=== PATIENT | female | born 1935 | race Caucasian/White ===

== ENCOUNTER 2019-04-21 12:55 | Outpatient (CLI) | payer MEDICARE, SELFPAY ==
--- NOTE | ~2019-04-21 | US_ITS ---
EXAMINATION: US carotid duplex BI DATE: 04/21/2019 13:42 INDICATION: Memory loss. Peripheral vascular disease. TECHNIQUE: Grayscale, color Doppler, and pulsed Doppler images of the cervical carotid arteries were obtained. The degree of vessel stenosis is placed in one of the following categories: normal, <50%, 5 0-69%, >=70% but less than near-occlusion, near-occlusion, or total occlusion. Note that percent sten osis relative to normal distal artery lumen diameter is indirectly measured from velocity measurement s as described by Rocael, et al. Radiology 2003; 229:340-346. Notes: Normal: Peak systolic velocity <125 centimeters/sec and no plaque <50%. Peak systolic velocity <125 ( EDV <40; ICA/CCA PSV ratio <2.0; used these factors only a tandem lesions or low cardiac output or co ntralateral disease) 50-69 %: PSV 125-230 (EDV 40-100; ratio 2-4) >= 70% but less than near occlusion: PSV greater than 230 (EDV > 100; ratio> 4.0) Near Occlusion: PSV that is variable; markedly narrowed lumen Occlusion: Absent flow on color/spectral Doppler and no lumen on rogers scale. COMPARISON: None. FINDINGS: RIGHT: The right common carotid artery (CCA) peak systolic velocity (PSV) is 81 cm/s. The right internal car otid artery (ICA) PSV is 92 cm/s. The right ICA end-diastolic velocity (EDV) is 18 cm/s. The right IC A/CCA PSV ratio is 1.1. The external carotid artery (ECA) PSV is 81 cm/s. There is antegrade flow in the right vertebral artery. LEFT: The left CCA PSV is 79 cm/s. The left ICA PSV is 72 cm/s. The left ICA EDV is 19 cm/s. The left ICA/C CA PSV ratio is 0.9. The ECA PSV is 91 cm/s. There is antegrade flow in the left vertebral artery. IMPRESSION: 1. Less than 50% stenosis in the right internal carotid artery by sonographic criteria. 2. Less than 50% stenosis in the left internal carotid artery by sonographic criteria. Reviewed, dictated and finalized at location A. IMPRESSION: 1. Less than 50% stenosis in the right internal carotid artery by sonographic c melissa. 2. Less than 50% stenosis in the left internal carotid artery by sonographic frank wagner.
== END 2019-04-21 12:56 | disposition home or self-care (01) ==
LOC: ANHIMG 13:07
PROVIDERS: PCP Nurse Practitioner Family; Visit Provider Nurse Practitioner Family
DX: R09.89 Other specified symptoms and signs involving the circulatory and respiratory systems (principal); I65.23 Occlusion and stenosis of bilateral carotid arteries
CPT/HCPCS: 93880

== ENCOUNTER 2019-04-25 11:23 | Outpatient (CLI) | payer MEDICARE, SELFPAY ==
[2019-04-25 13:14] LABS: Blood Urea Nitrogen 17 mg/dL (7-17); Calcium 10.5 mg/dL (8.4-10.2); Carbon Dioxide 25 mmol/L (22-30); Chloride 99 mmol/L (98-107); Estimated Glomerular Filt Rate > 60; Glucose 233 mg/dL (65-105); Potassium 4.3 mmol/L (3.4-5.0); Sodium 131 mmol/L (137-145)
== END 2019-04-25 11:24 | disposition home or self-care (01) ==
LOC: ANHWCLAB 11:29
PROVIDERS: PCP Nurse Practitioner Family; Visit Provider Nurse Practitioner Family
DX: E87.5 Hyperkalemia (principal)
CPT/HCPCS: 36415; 80048

== ENCOUNTER 2019-10-07 11:09 | Outpatient (CLI) | payer MEDICARE, SELFPAY ==
[2019-10-07 11:59] LABS: Alanine Aminotransferase 18 U/L (4-35); Albumin Level 4.1 g/dL (3.5-5.1); Alkaline Phosphatase 41 U/L (38-126); Anion Gap 7 mmol/L (8-16); Aspartate Amino Transferase 26 U/L (14-36); Bilirubin,Total 0.4 mg/dL (0.2-1.3); Blood Urea Nitrogen 12 mg/dL (7-17); Calcium 9.9 mg/dL (8.4-10.2); Carbon Dioxide 28 mmol/L (22-30); Chloride 95 mmol/L (98-107); Estimated Glomerular Filt Rate > 60; Glucose 205 mg/dL (65-105); Hemoglobin A1C 8.2 % (<5.7); Potassium 4.1 mmol/L (3.4-5.0); Sodium 130 mmol/L (137-145)
[2019-10-07 12:09] LABS: LDL Cholesterol Direct 98 mg/dL
[2019-10-07 12:25] LABS: Cholesterol 257 mg/dL (0-200); Triglycerides 141 mg/dL (<150)
[2019-10-07 12:35] LABS: Vitamin D 25 Hydroxy 34.8 ng/mL
[2019-10-07 13:06] LABS: HDL Direct 123 mg/dL
== END 2019-10-07 11:10 | disposition home or self-care (01) ==
LOC: ANHLAB 11:12
PROVIDERS: PCP Nurse Practitioner Family; Visit Provider Nurse Practitioner Family
DX: E55.9 Vitamin D deficiency, unspecified (principal); I10 Essential (primary) hypertension; E11.9 Type 2 diabetes mellitus without complications
CPT/HCPCS: 36415; 80053; 80061; 82306; 83036

== ENCOUNTER → 2020-05-04 08:02 | Outpatient (CLI) | payer MEDICARE, SELFPAY ==
--- NOTE | ~2020-05-04 | US_ITS ---
US soft tissue abdomen DATE: 05/04/2020 08:38 INDICATION: Left upper quadrant abdominal swelling, mass. History of abdominal surgeries. TECHNIQUE: Real-time imaging of the anterior abdominal wall COMPARISON: 11/12/2018 CT abdomen pelvis FINDINGS: Bowel containing left anterior abdominal wall hernia is confirmed sonographically, also chance dent on 11/12/2018 CT abdomen pelvis examination. IMPRESSION: Left ventral abdominal wall hernia containing bowel Reviewed, dictated and finalized at [facility]. Reviewed, dictated and finalized at location B.
== END ==
PROVIDERS: PCP Nurse Practitioner Family; Visit Provider Nurse Practitioner Family
DX: R19.02 Left upper quadrant abdominal swelling, mass and lump (principal)
CPT/HCPCS: 76705

== ENCOUNTER 2023-02-10 07:09 | Emergency (ER) | payer MEDICARE, SELFPAY ==
--- NOTE | ~2023-02-10 | CT_ITS ---
EXAMINATION: CT brain wo con DATE: 02/10/2023 07:48 INDICATION: Head injury. TECHNIQUE: Computed tomography (CT) of the head was performed without intravenous contrast. The mA wa s adjusted according to patient size. Iterative reconstruction technique was employed. The dose-lengt h product was 529.67 mGy-cm. COMPARISON: Head CT 11/12/2018 FINDINGS: There are scattered areas of low attenuation in the cerebral white matter. There is no intr acranial hemorrhage, acute infarction, or abnormal intracranial mass lesion. The ventricles are irvin l in size. There are likely changes of ocular lens replacement surgeries. The paranasal sinuses are c lear. The mastoid air cells are normal. IMPRESSION: 1. Worsened extensive nonspecific cerebral white matter disease, which likely represents chronic smal l vessel ischemic disease. Reviewed, dictated and finalized at location A. OR NATUROPATHIC IMPRESSION: 1. Worsened extensive nonspecific cerebral white matter disease, which likely r epresents chronic small vessel ischemic disease.
--- NOTE | ~2023-02-10 | XR_ITS ---
EXAMINATION: XR hip BI 2V w AP pelvis DATE: 02/10/2023 07:51 INDICATION: Bilateral hip pain. TECHNIQUE: An anteroposterior view of the pelvis and 2 views of each hip were obtained. COMPARISON: None. FINDINGS: There is lumbar levocurvature and severe spondylosis. No acute fracture. There is mild oste oarthritis of the hips. There is plate and screw fixation of right femoral diaphysis. There are surgi lizette clips overlying the abdomen and pelvis. IMPRESSION: 1. Mild osteoarthritis of the hips. Reviewed, dictated and finalized at location A. 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
--- NOTE | ~2023-02-10 | CT_ITS ---
EXAMINATION: CT cervical spine wo con DATE: 02/10/2023 07:48 INDICATION: Neck injury. TECHNIQUE: Computed tomography (CT) of the cervical spine was performed without intravenous contrast. Automated exposure control and iterative reconstruction technique were employed. The dose-length pro duct was 125.05 mGy-cm. COMPARISON: None FINDINGS: There is 5 degrees levocurvature of cervicothoracic spine. There is 2 mm anterolisthesis of C4 on C5, C6 on C7, and C7 on T1. Vertebral body heights are normal. There is mildly decreased disc height at C3-C4 and C4-C5 and severely decreased disc height at C5-C6 and C6-C7. The following disc l evels are specifically discussed: C2-C3: There is mild bilateral uncovertebral joint osteoarthritis. There is severe right and moderate left facet joint osteoarthritis. There is mild right neural foraminal stenosis. There is no central canal stenosis. C3-C4: There is ankylosis of right uncovertebral joint with mild hypertrophy. There is severe left fa cet joint osteoarthritis. There is ankylosis of right facet joint with moderate hypertrophy. There is mild right neural foraminal stenosis. There is no central canal stenosis. C4-C5: There is severe right and mild left uncovertebral joint osteoarthritis. There is severe bilate ral facet joint osteoarthritis. There is mild bilateral neural foraminal stenosis. There is mild cent ral canal stenosis. C5-C6: There is severe bilateral uncovertebral joint osteoarthritis. There is severe bilateral facet joint osteoarthritis. There is mild bilateral neural foraminal stenosis. There is mild central canal stenosis. C6-C7: There is moderate right and severe left uncovertebral joint osteoarthritis. There is severe bi lateral facet joint osteoarthritis. There is mild right and moderate left neural foraminal stenosis. There is mild central canal stenosis. C7-T1: There is no uncovertebral joint osteoarthritis. There is ankylosis of the facet joints with mi ld hypertrophy. There is mild bilateral neural foraminal stenosis. There is no central canal stenosis . IMPRESSION: 1. No fracture. 2. Severe cervical spondylosis. Reviewed, dictated and finalized at location A. 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
[2023-02-10 07:10] VITALS: BP 139/75; PULSE 78; RESP 16; TEMP 36.6; O2SAT 95
--- NOTE | 2023-02-10 07:34 | ED.GENADULT ---
HPI - General Adult General Chief complaint: Fall Stated complaint: fall History of Present Illness HPI narrative: 87-year-old female presenting to the emergency department for evaluation for a ground level fall this morning. Patient slid from a chair and patient is unsure if she struck her head or had loss of consciousness. Patient does have bilateral hip pain that she states is improving since he has been resting in the bed. Patient states the pain is worse on the right than the left. Patient reports she was able to ambulate after the fall. Patient denies any other pain or injury. Related Data Allergies Allergy/AdvReac Type Severity Reaction Status Date / Time adhesive AdvReac Mild BANDAIDS Verified 05/11/20 08:33 CAUSE RASH codeine AdvReac Mild N/V Verified 05/11/20 08:33 latex AdvReac Mild Itching Verified 05/11/20 08:33 Review of Systems Review of Systems: All systems reviewed & are unremarkable except as noted in HPI and below PMFSH Past Medical History Medical History (Updated 02/10/23 @ 08:49 by Enrique Rose MD) Abdominal hernia Anxiety Diabetes H/O cancer of uterus History of acute cystitis (~11/2018) Follows with Dr Jefferson Hypertension Hypertension Insomnia Memory loss Myocardial infarct, old tropinins were elevated; she denies [place] Type 2 diabetes mellitus without complications Vitamin D deficiency Family History Family History (Updated 03/26/18 @ 09:09 by DOCTOR UNKNOWN) Mother Cerebrovascular accident Family history of heart disease in male family member before age 55 Father Patient's father is Family history of malignant melanoma Other Family history of condition Family history of dementia Social History Social History Smoking status: Never smoker Alcohol intake: current Exam Narrative: APPEARANCE: Well appearing, no pain, no distress, well-nourished. HEAD: normocephalic, atraumatic. EYES: PERRLA/EOMI, conjunctivae clear. NOSE: Normal no drainage NECK: Supple. No adenopathy, no masses. RESPIRATORY: Airway patent, respirations nonlabored. Clear to auscultation bilaterally, no rales, rhonchi, wheezing. CARDIOVASCULAR: Regular rate and rhythm without murmurs rubs or gallops. ABDOMINAL: Soft, nontender, nondistended, normal bowel sounds MUSCULOSKELETAL: Moves all extremities. Strength/ROM intact, No edema, No calf tenderness. NEURO: Alert. Cranial nerves II through XII intact. SKIN: Warm, dry. Normal Color Course Course Emergency Course: ID 7-year-old female presenting to the emergency department for evaluation after having a ground level fall. Patient had negative head cervical spine and hip x-rays. Patient was able to ambulate with a walker at her baseline. Patient states she feels sore but denies any other complaints. Patient was comfortable with plan for discharge back to the care facility. Vital Signs Vital signs: Vital Signs Temperature 97.8 F 02/10/23 07:10 Pulse Rate 78 02/10/23 07:10 Respiratory Rate 16 02/10/23 07:10 Blood Pressure 139/75 02/10/23 07:10 Pulse Oximetry 95 02/10/23 07:10 Oxygen Delivery Room Air 02/10/23 07:10 Temperature 97.8 F 02/10/23 07:10 Pulse Rate 74 02/10/23 09:15 Respiratory Rate 16 02/10/23 09:15 Blood Pressure 141/60 H 02/10/23 09:15 Pulse Oximetry 96 02/10/23 09:15 Oxygen Delivery Room Air 02/10/23 07:10 Medical Decision Making Differential Diagnosis Differential Diagnosis: Bone fracture, cervical spine fracture, intracranial abnormality Vital Signs Vital Signs: Vital Signs Temperature 97.8 F 02/10/23 07:10 Pulse Rate 78 02/10/23 07:10 Respiratory Rate 16 02/10/23 07:10 Blood Pressure 139/75 02/10/23 07:10 Pulse Oximetry 95 02/10/23 07:10 Oxygen Delivery Room Air 02/10/23 07:10 Temperature 97.8 F 02/10/23 07:10 Pulse Rate 74 02/10/23 09:15 Respiratory Rate 16 02/10/23 09:15 Blood Pressure 141/60 H
[2023-02-10 08:30] VITALS: BP 161/73; PULSE 84; RESP 16; O2SAT 98
[2023-02-10 09:15] VITALS: BP 141/60; PULSE 74; RESP 16; O2SAT 96
--- NOTE | 2023-02-10 09:30 | PC.NURSE ---
ATTEMPTED TO CALL REPORT FOR PT PRIOR TO HER BEING TRANSPORTED BACK TO FACILITY. NO ANSWER. MESSAGE LEFT FOR THEM TO CALL BACK IF THEY NEED INFORMATION.
== END 2023-02-10 09:30 ==
PROVIDERS: Emergency Provider Emergency Medicine; PCP Nurse Practitioner Family
DX: S09.90XA Unspecified injury of head, initial encounter (principal); M25.551 Pain in right hip; M25.552 Pain in left hip; W07.XXXA Fall from chair, initial encounter; I10 Essential (primary) hypertension; E11.9 Type 2 diabetes mellitus without complications; E55.9 Vitamin D deficiency, unspecified; F41.9 Anxiety disorder, unspecified; I25.2 Old myocardial infarction; Z85.42 Personal history of malignant neoplasm of other parts of uterus; Z79.84 Long term (current) use of oral hypoglycemic drugs
CPT/HCPCS: 70450; 72125; 73521; 99284

== ENCOUNTER 2023-02-20 15:36 | Inpatient (IN) | payer MEDICARE, SELFPAY ==
[2023-02-20] VITALS (15 sets, daily range): BP systolic 108–188; BP diastolic 65–87; PULSE 72–87; RESP 16–20; TEMP 36.1–37; O2SAT 96–100; BMI 25.0
--- NOTE | ~2023-02-20 | XR_ITS ---
EXAMINATION: XR chest 1V portable DATE: 02/20/2023 16:12 INDICATION: Dizziness. TECHNIQUE: A single frontal view of the chest was obtained. COMPARISON: Chest view 11/12/2018 FINDINGS: There is no pneumonia, pleural effusion, or pneumothorax. The heart size is normal. There a re old healed right rib fractures. IMPRESSION: 1. No acute cardiopulmonary disease. Reviewed, dictated and finalized at location A. TOR OPERATOR HELPER
--- NOTE | 2023-02-20 15:44 | ECG_ITS ---
Measurements Intervals [place] Rate: 76 P: 42 OR: 205 QRS: -12 QRSD: 92 T: 28 QT: 369 QTc: 415 Interpretive Statements SINUS RHYTHM POSSIBLE LEFT ATRIAL ENLARGEMENT DELAYED PRECORDIAL R/S TRANSITION LEFT VENTRICULAR HYPERTROPHY WITH ST-T CHANGE INFERIOR INFARCT, AGE INDETERMINATE ABNORMAL ECG COMPARED TO ECG 11/12/2018 10:23:25 SINUS RHYTHM NOW PRESENT Electronically Signed On 02-20-2023 16:11:12 CD [employer] MAKE UP HELPER by Delta Garcia D.O.
[2023-02-20 16:10] LABS: Basophils Absolute Auto 0.1 K/mm3 (0.0-0.1); Basophils Percent Auto 0.6 % (0.2-1.2); Eosinophils Percent Auto 0.3 % (0-4.4); Hematocrit 35.7 % (37.0-47.0); Hemoglobin 11.7 g/dL (12.0-15.0); Immature Granulocyte Absolute 0.03 K/mm3 (0.00-0.031); Immature Granulocyte Percent A 0.2 % (0-0.5); Immature Platelet Fraction Pct 4.2 % (0.9-11.2); Lymphocytes Absolute Auto 6.69 K/mm3 (0.9-3.2); Lymphocytes Percent Auto 49.8 % (18.3-44.2); Mean Corpuscular HGB Conc 32.8 g/dl (32-36); Mean Corpuscular Hemoglobin 31.6 pg (26-34); Mean Corpuscular Volume 96.5 fl (80-100); Mean Platelet Volume 10.1 fl (7.4-10.4); Monocytes Absolute Auto 0.5 K/mm3 (0.1-0.6); Monocytes Percent Auto 3.9 % (2.6-8.5); Neutrophils Absolute Auto 6.1 K/mm3 (1.3-6.7); Neutrophils Percent Auto 45.2 % (45.5-73.1); Platelet Count Result 277 k/mm3 (150-375); Red Cell Distribution Width 12.4 % (11.5-14.5); White Blood Count 13.4 K/mm3 (4.5-10.0)
[2023-02-20 16:17] LABS: Alanine Aminotransferase 17 U/L (6-35); Alkaline Phosphatase 43 U/L (38-126); Anion Gap 8 mmol/L (8-16); Aspartate Amino Transferase 31 U/L (14-36); Bilirubin,Total 0.4 mg/dL (0.2-1.3); Blood Urea Nitrogen 15 mg/dL (7-17); Calcium 10.5 mg/dL (8.4-10.2); Carbon Dioxide 28 mmol/L (22-30); Chloride 95 mmol/L (98-107); Estimated CRCL calculation 40 ml/min; Estimated Glomerular Filt Rate > 60; Glucose 185 mg/dL (65-110); Lipase 78 U/L (23-300); Potassium 3.6 mmol/L (3.4-5.0); Sodium 131 mmol/L (137-145)
[2023-02-20 16:20] LABS: Prothrombin Time 13.4 Seconds (11.1-14.7)
[2023-02-20 16:21] LABS: Partial Thromboplastin Time 23.5 SECONDS (22.3-36.8)
[2023-02-20 16:29] LABS: Platelet Estimate Adequate (Adequate); Smudge Cells FEW
[2023-02-20 16:30] LABS: Platelet Clumps Present; Schistocytes None Seen (NORMAL)
[2023-02-20 16:33] LABS: Troponin I 0.084 ng/mL (0.000-0.034)
--- NOTE | 2023-02-20 16:48 | PC.NURSE ---
pt pulled iv line out. got dressed and walked to nurses station stating she wants to leave. pts son contacted ed for update and made aware of pts plan of care. continue waiting edp evaluation.
--- NOTE | 2023-02-20 17:44 | ED.DIZZY ---
HPI - Dizziness General Chief Complaint: Dizziness <Donna Wasserman PA-C - Last Filed: 02/20/23 22:24> Stated Complaint: dizzy, glf <Donna Wasserman PA-C - Last Filed: 02/20/23 22:24> Time Seen by Provider: 02/20/23 17:14 <Donna Wasserman PA-C - Last Filed: 02/20/23 22:24> Source: patient, family and EMS <JANELLE Sylvester Last Filed: 02/20/23 22:24> Mode of arrival: EMS <JANELLE Sylvester Last Filed: 02/20/23 22:24> Limitations: dementia <JANELLE Sylvester Last Filed: 02/20/23 22:24> History of Present Illness HPI Narrative: This is a 87 year old female that presents to the ER after a ground level fall from her nursing facility. Patient reportedly was found on the ground by staff. She reported to the paramedics that she was dizzy, but now is reporting no concerns and would like to go home. She is unable to give any history due to her dementia. Son is present at bedside. <Donna Wasserman PA-C - Last Filed: 02/20/23 22:24> Related Data Allergies/Adverse Reactions: Allergies Allergy/AdvReac Type Severity Reaction Status Date / Time adhesive AdvReac Mild BANDAIDS Verified 02/20/23 22:25 CAUSE RASH codeine AdvReac Mild N/V Verified 02/20/23 22:25 latex AdvReac Mild Itching Verified 02/20/23 22:25 <JANELLE Sylvester Last Filed: 02/20/23 22:24> Review of Systems Review of Systems: ROS unobtainable: Yes unobtainable due to medical condition <JANELLE Sylvester Last Filed: 02/20/23 22:24> PMF Past Medical History Medical History: Medical History Abdominal hernia Anxiety Diabetes H/O cancer of uterus History of acute cystitis (~11/2018) Follows with Dr Jefferson Hypertension Hypertension Insomnia Memory loss Myocardial infarct, old tropinins were elevated; she denies [place] Type 2 diabetes mellitus without complications Vitamin D deficiency <Donna Wasserman PA-C - Last Filed: 02/20/23 22:24> Family History Family History: Family History Mother Cerebrovascular accident Family history of heart disease in male family member before age 55 Father Patient's father is Family history of malignant melanoma Other Family history of condition Family history of dementia <Donna Wasserman PA-C - Last Filed: 02/20/23 22:24> Social History Social History: Social History Smoking status: Never smoker Alcohol intake: current Drinks per week: 3 Substance use: never Substance use type: does not use Do You Feel Safe in your Home?: Yes Lack of Transportation: No Lack of Food: Never True Current Housing: I Have Housing Concerned About Future Housing: No Difficulty Paying Gas/Electric Bills: No Difficulty Paying for Meds: No Currently Unemployed: No Education: Associate Degree Difficulty w/ Childcare or Family Care: No Spiritual care concerns: No <Donna Wasserman PA-C - Last Filed: 02/20/23 22:24> Exam Narrative: GENERAL: Elderly, well-nourished, and in no acute distress. HEAD: Normocephalic, atraumatic. EYES: PERRLA and EOMI. ENT: Nares clear, no rhinorrhea or epistaxis. Mucous membranes moist. Oropharynx without tonsillar hypertrophy exudate or other lesions. Bilateral TMs pearly rogers non-bulging NECK: Supple. No adenopathy or masses. No midline spinal tenderness CHEST: Clear to auscultation. No respiratory distress. No wheezes rales or rhonchi HEART: Regular rate and rhythm. No murmur heard. Normal peripheral pulses. ABDOMEN: Soft, nontender, nondistended, normal active bowel sounds. EXTREMITIES: Normal range of motion. No edema or obvious deformity. Moving all extremities. Normal peripheral pulses SKIN: Warm, dry, no rash. NEURO: No focal deficits. Alert and oriented x2. CN II-XII grossly intact PSYCH: Normal mo
[2023-02-20 18:12] LABS: Lactic Acid Reflex 2.6 mmol/L (0.7-2.0)
--- NOTE | 2023-02-20 19:15 | PC.NURSE ---
Assumed care of pt from BRIAN Cruz at this time.
[2023-02-20 19:29] LABS: Color Urine Yellow (Yellow)
[2023-02-20 19:30] LABS: Appearance Urine Cloudy (Clear)
[2023-02-20 19:31] LABS: Add Urine Microscopic? YES
[2023-02-20 19:32] LABS: Blood Urine Trace-Intact (Negative); Glucose Urine UA Negative (Negative); Ketones Urine Trace mg/dL (Negative); Nitrate Urine Positive (Negative); Protein Urine Negative (Negative); pH Urine 5.5 (5.0-9.0)
[2023-02-20 19:33] LABS: Bilirubin Urine Negative (Negative); Leukocyte Esterase Ur Negative LEU/UL (Negative); RBC Urine 0-2 /hpf (0-2); Urobilinogen Urine 0.2 mg/dL (<2.0)
[2023-02-20 19:34] LABS: Bacteria Urine 4+ /hpf; Squamous Epithelial Cell Urine Few /hpf (Few)
[2023-02-20] MEDS: SODIUM CHLORIDE 0.9% IV 500 ML 999 ML IV CONT (20:30)
[2023-02-20 20:59] LABS: Reflex Lactic Acid Yes or No Add Lactic
[2023-02-20 21:23] LABS: Troponin I 0.036 ng/mL (0.000-0.034)
[2023-02-20] MEDS: SODIUM CHLORIDE 0.9% IV 1,000 ML 500 ML IV CONT (21:31)
[2023-02-20 23:30] LABS: Lactic Acid 1.2 mmol/L (0.7-2.0)
[2023-02-20 23:58] LABS: Troponin I 0.191 ng/mL (0.000-0.034)
[2023-02-21 05:03] VITALS: BP 163/53; PULSE 74; RESP 20; TEMP 36.4; O2SAT 99
--- NOTE | 2023-02-21 12:26 | PM.IMHP ---
H&P: HPI History of Present Illness Date/Time: 02/21/23 12:26 Chief Complaint: Confusion and fall Narrative: 87 year old female that presents to the ER after a ground level fall from her nursing facility.?Pt has history of HTN and DM Pt has history of dementia. [place] [id number], UA is positive, UC awaiting BC is awaiting Continue to hydrate and treat for UTI Review of Systems Review of Systems: Confusion history of dizziness and falls All other systems are negative apart the ones listed above PMFSH Past Medical History Medical History Abdominal hernia Anxiety Diabetes H/O cancer of uterus History of acute cystitis (~11/2018) Follows with Dr Jefferson Hypertension Hypertension Insomnia Memory loss Myocardial infarct, old tropinins were elevated; she denies [place] Type 2 diabetes mellitus without complications Vitamin D deficiency Family History Family History Mother Cerebrovascular accident Family history of heart disease in male family member before age 55 Father Patient's father is Family history of malignant melanoma Other Family history of condition Family history of dementia Social History Social History Smoking status: Never smoker Alcohol intake: current Drinks per week: 3 Substance use: never Substance use type: does not use Do You Feel Safe in your Home?: Yes Lack of Transportation: No Lack of Food: Never True Current Housing: I Have Housing Concerned About Future Housing: No Difficulty Paying Gas/Electric Bills: No Difficulty Paying for Meds: No Currently Unemployed: No Education: Associate Degree Difficulty w/ Childcare or Family Care: No Spiritual care concerns: No Meds Home Medications and Allergies Home Medications Medication Instructions Recorded Confirmed Type metformin 1,000 mg tablet 1,000 mg PO BID #180 tabs 05/23/21 02/20/23 Rx tamsulosin 0.4 mg capsule 0.4 mg PO DAILY #90 caps 05/24/21 02/20/23 Rx amlodipine 10 mg tablet 10 mg PO DAILY #30 ea 10/07/21 02/20/23 Rx acetaminophen 500 mg tablet 500 mg PO .q12 PRN pain (scale 10/20/21 02/20/23 Rx (Tylenol Extra Strength) score 4-6) #60 tabs calcium carb,cit ER 600 mg-vit D3 1 tablet PO DAILY #1 tablet 12/13/21 02/20/23 Rx 12.5 mcg (500 unit) tablet,ext.rel docusate sodium 100 mg capsule 100 mg PO DAILY #1 cap 12/13/21 02/20/23 Rx (Colace) melatonin 3 mg capsule 3 mg PO QHS #1 cap 12/13/21 02/20/23 Rx polyethylene glycol 3350 17 17 g PO DAILY #119 grams 12/13/21 02/20/23 Rx gram/dose oral powder (Miralax) Allergies Allergy/AdvReac Type Severity Reaction Status Date / Time adhesive AdvReac Mild BANDAIDS Verified 02/20/23 22:25 CAUSE RASH codeine AdvReac Mild N/V Verified 02/20/23 22:25 latex AdvReac Mild Itching Verified 02/20/23 22:25 Vital Signs Vital Signs - 24 hr 02/20/23 15:37 02/20/23 15:44 02/20/23 15:59 Temperature 37.0 C Pulse Rate 87 80 76 Respiratory Rate 16 Blood Pressure 188/87 H Pulse Oximetry 100 98 Oxygen Delivery Room Air 02/20/23 16:00 02/20/23 16:01 02/20/23 16:15 Temperature Pulse Rate 79 78 78 Respiratory Rate Blood Pressure 181/72 H Pulse Oximetry 97 96 Oxygen Delivery 02/20/23 16:16 02/20/23 16:30 02/20/23 17:43 Temperature Pulse Rate 76 84 80 Respiratory Rate Blood Pressure 174/75 H Pulse Oximetry Oxygen Delivery 02/20/23 17:45 02/20/23 18:00 02/20/23 18:15 Temperature Pulse Rate 78 85 84 Respiratory Rate Blood Pressure Pulse Oximetry 98 Oxygen Delivery 02/20/23 22:06 02/20/23 22:38 02/20/23 22:34 Temperature 36.1 C L Pulse Rate 79 72 72 Respiratory Rate 20 20 20 Blood Pressure 178/69 H 108/65 Pulse Oximetry 97 100 100 Oxygen Delivery Room
[2023-02-21 13:11] VITALS: BP 174/64; PULSE 72; O2SAT 99
[2023-02-21] MEDS: amLODIPine BESYLATE 5 MG TABLET 10 MG PO (13:12)
[2023-02-21] MEDS: DOCUSATE SODIUM 100 MG CAPSULE PO (13:12)
[2023-02-21] MEDS: TAMSULOSIN HCL 0.4 MG CAPSULE PO (13:12)
[2023-02-21] MEDS: polyethylene glycoL 3350 17 GM POWD.PACK PO (13:12)
[2023-02-21] MEDS: ENOXAPARIN 40 MG/0.4 ML SYRINGE SUB-Q (13:13)
[2023-02-21 17:49] LABS: Glucose Point of Care 174 mg/dl (65-105)
[2023-02-21] MEDS: ALPRAZolam (*CRX) 0.25 MG TABLET PO ×2 (18:37→22:48)
[2023-02-21 21:28] LABS: Glucose Point of Care 160 mg/dl (65-105)
[2023-02-21 21:45] VITALS: BP 153/72; PULSE 83; RESP 17; TEMP 36.6; O2SAT 99
[2023-02-21] MEDS: MELATONIN 3 MG TABLET PO (22:48)
[2023-02-22] VITALS (7 sets, daily range): BP systolic 134–195; BP diastolic 52–76; PULSE 62–77; RESP 17–20; TEMP 36.6–36.8; O2SAT 98–100
[2023-02-22 07:45] LABS: Glucose Point of Care 163 mg/dl (65-105)
[2023-02-22] MEDS: amLODIPine BESYLATE 5 MG TABLET 10 MG PO (08:58)
[2023-02-22] MEDS: TAMSULOSIN HCL 0.4 MG CAPSULE PO (08:59)
[2023-02-22] MEDS: DOCUSATE SODIUM 100 MG CAPSULE PO (08:59)
[2023-02-22] MEDS: polyethylene glycoL 3350 17 GM POWD.PACK PO (08:59)
[2023-02-22] MEDS: ENOXAPARIN 40 MG/0.4 ML SYRINGE SUB-Q (09:02)
[2023-02-22] MEDS: CIPROFLOXACIN 500 MG TAB PO ×2 (09:06→20:07)
--- NOTE | 2023-02-22 11:28 | PM.IMPN ---
Progress Note: A&P Assessment and Plan (1) Acute UTI: Code(s): N39.0 - Urinary tract infection, site not specified Status: Acute Assessment and Plan: Patients UA is positive, awaiting UC full report, Bc is negative IV rocephin ordered transition to oral [place]iprofl[place] [id number] on admission watch wcc today await uc full report and dc accordingly (2) Dehydration: Code(s): E86.0 - Dehydration Status: Acute Assessment and Plan: IV fluids ordered pt lost iv access encourage fluids (3) Fall: Qualifiers: Encounter type: initial encounter Qualified Code(s): W19.XXXA - Unspecified fall, initial encounter Code(s): W19.XXXA - Unspecified fall, initial encounter Status: Acute Assessment and Plan: PT/ OT (4) Chronic hyponatremia: Code(s): E87.1 - Hypo-osmolality and hyponatremia Status: Acute Assessment and Plan: sodium is 131 continue to correct sodium levels (5) Type 2 diabetes mellitus without complications: Qualifiers: 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: without jail use Qualified Code(s): E11.9 - Type 2 diabetes mellitus without complications Code(s): E11.9 - Type 2 diabetes mellitus without complications Status: Chronic Assessment and Plan: AccuCheck low dose SSI Hold metformin (6) Hypertension: Code(s): I10 - Essential (primary) hypertension Status: Chronic Assessment and Plan: Order patients blood pressure medications Check orthostatics Plan Confusion may be related to UTI Pt has underlying dementia likes to wander halls DVT prop lovenox 40 mg sub Q daily Subjective Date/time seen: 02/22/23 11:28 Interval history: 87 year old female that presents to the ER after a ground level fall from her nursing facility.?Pt has history of HTN and DM Pt has history of [place]. [place] [id number], UA is positive, UC shows gram negative bacilli awaiting full report, BC is negative Continue to hydrate and treat for UTI Review of Systems Review of Systems: pt is pleasant lady likes to wander in corridors history of dementia Exam Narrative: GENERAL: Elderly, well-nourished, and in no acute distress. HEAD: Normocephalic, atraumatic. EYES: PERRLA and EOMI. ENT: Nares clear, no rhinorrhea or epistaxis. Mucous membranes moist. Oropharynx without tonsillar hypertrophy exudate or other lesions. Bilateral TMs pearly rogers non-bulging NECK: Supple. No adenopathy or masses. No midline spinal tenderness CHEST: Clear to auscultation. No respiratory distress. No wheezes rales or rhonchi HEART: Regular rate and rhythm. No murmur heard. Normal peripheral pulses. ABDOMEN: Soft, nontender, nondistended, normal active bowel sounds. EXTREMITIES: Normal range of motion. No edema or obvious deformity. Moving all extremities. Normal peripheral pulses SKIN: Warm, dry, no rash. NEURO: No focal deficits. Alert and oriented x2. CN II-XII grossly intact PSYCH: Normal mood and affect Objective Data Vital Signs Vital Signs: Vital Signs - 24 hr 02/21/23 13:11 02/21/23 14:23 02/21/23 21:45 Temperature 36.6 C Pulse Rate 72 83 Respiratory Rate 17 Blood Pressure 174/64 H 153/72 H Pulse Oximetry 99 99 Oxygen Delivery Room Air 02/22/23 05:38 02/22/23 09:05 Temperature 36.6 C Pulse Rate 62 Respiratory Rate 18 Blood Pressure 148/56 H Pulse Oximetry 100 Oxygen Delivery Room Air Intake/Output Intake/Output: Intake & Output 02/19/23 02/20/23 02/21/23 02/22/23 23:59 23:59 23:59 23:59 Intake Total 1550 650 360 Output Total 100 400 400 Balance 1450 250 -40 Meds/Results Medications: Active Medications Generic Name Dose Route Start Last Admin Trade Name Freq PRN Reason Stop Dose Admin Acetaminophen 500 mg 02/21/23 12:41 Acetaminophen 500 Mg Tablet PO Q12H PRN pain (scale sco
[2023-02-22 12:00] LABS: Glucose Point of Care 319 mg/dl (65-105)
[2023-02-22] MEDS: INSULIN ASPART (*BKC) 100 UNITS/ML SUB-Q (13:11)
[2023-02-22 17:06] LABS: Glucose Point of Care 141 mg/dl (65-105)
[2023-02-22] MEDS: MELATONIN 3 MG TABLET PO (20:07)
[2023-02-22 20:20] LABS: Glucose Point of Care 193 mg/dl (65-105)
[2023-02-23 02:44] VITALS: BP 145/50; PULSE 63; RESP 20; TEMP 36.7; O2SAT 99
[2023-02-23 06:17] LABS: Hematocrit 34.2 % (37.0-47.0); Hemoglobin 10.9 g/dL (12.0-15.0); Mean Corpuscular HGB Conc 31.9 g/dl (32-36); Mean Corpuscular Hemoglobin 31.5 pg (26-34); Mean Corpuscular Volume 98.8 fl (80-100); Mean Platelet Volume 10.5 fl (7.4-10.4); Platelet Count Result 231 k/mm3 (150-375); Red Blood Count 3.46 M/mm3 (4.2-5.4); Red Cell Distribution Width 12.4 % (11.5-14.5); White Blood Count 8.7 K/mm3 (4.5-10.0)
[2023-02-23 06:31] LABS: Anion Gap 5 mmol/L (8-16); Blood Urea Nitrogen 13 mg/dL (7-17); Calcium 9.5 mg/dL (8.4-10.2); Carbon Dioxide 29 mmol/L (22-30); Chloride 96 mmol/L (98-107); Estimated CRCL calculation 40 ml/min; Estimated Glomerular Filt Rate > 60; Glucose 182 mg/dL (65-110); Potassium 3.9 mmol/L (3.4-5.0); Sodium 130 mmol/L (137-145)
[2023-02-23] MEDS: TAMSULOSIN HCL 0.4 MG CAPSULE PO (08:03)
[2023-02-23] MEDS: amLODIPine BESYLATE 5 MG TABLET 10 MG PO (08:03)
[2023-02-23] MEDS: DOCUSATE SODIUM 100 MG CAPSULE PO (08:03)
[2023-02-23] MEDS: CIPROFLOXACIN 500 MG TAB PO (08:03)
[2023-02-23] MEDS: ENOXAPARIN 40 MG/0.4 ML SYRINGE SUB-Q (08:03)
[2023-02-23] MEDS: polyethylene glycoL 3350 17 GM POWD.PACK PO (08:03)
[2023-02-23 08:04] LABS: Glucose Point of Care 199 mg/dl (65-105)
[2023-02-23 12:19] LABS: Glucose Point of Care 226 mg/dl (65-105)
[2023-02-23] MEDS: INSULIN ASPART (*BKC) 100 UNITS/ML SUB-Q (12:23)
--- NOTE | 2023-02-23 13:57 | PM.DS ---
DS: Admitting Diagnosis Discharge Date 02/23/2023 Admitting Diagnosis Fall DS: Summary Hospital Course Hospital Course: The patient is an 87-year-old female who presented initially after a ground-level fall on 02/10/23. She slid from a chair and was uncertain if she struck her head or experienced loss of consciousness. She complained of bilateral hip pain, which was worse on the right than the left, but was able to ambulate after the fall. She had negative cervical spine and hip x-rays and was discharged home. She presented again on 02/20/23 with another ground-level fall in her nursing facility, reporting dizziness but no chest pain. Her blood pressure was initially elevated, but she was afebrile and appeared non-toxic. She had leukocytosis, mild chronic anemia, and evidence of dehydration. Lactic acid was elevated. She received hydration and IV antibiotics in the ER. A CT brain was ordered but refused by the patient and family. She consented to admission for further management. Her blood pressure has stabilized since admission, leukocytosis has resolved, and lactic acidosis has resolved. She has mild chronic hyponatremia. The patient has no acute cardiopulmonary disease on admission. She has been evaluated by PTOT, ambulates with assistance using a wheeled walker. Her UA was positive for nitrate with very mild WBCs, blood culture negative to date, and urine culture positive for Klebsiella pneumoniae. She is sensitive to ciprofloxacin 500 mg every 12 hours and is planned to complete the course for total 7 days. She is back to her baseline and will go back to her previous home arrangement Time Spent with Patient Time attestation: Total time spent providing and/or coordinating discharge services: 35 minutes Exam Narrative: GENERAL: Elderly, well-nourished, and in no acute distress. HEAD: Normocephalic, atraumatic. EYES: PERRLA and EOMI. ENT: Nares clear, no rhinorrhea or epistaxis. Mucous membranes moist. NECK: Supple. No adenopathy or masses. No midline spinal tenderness CHEST: Clear to auscultation. No respiratory distress. No wheezes rales or rhonchi HEART: Regular rate and rhythm. No murmur heard. Normal peripheral pulses. ABDOMEN: Soft, nontender, nondistended, normal active bowel sounds. EXTREMITIES: Normal range of motion. No edema or obvious deformity. Moving all extremities. Normal peripheral pulses SKIN: Warm, dry, no rash. NEURO: No focal deficits. Alert and oriented x2. CN II-XII grossly intact PSYCH: Normal mood and affect DS: Data Data Completed and Pending Labs on day of discharge: Labs from last 24 hours 02/23/23 02/23/23 02/23/23 12:15 08:00 05:24 WBC 8.7 RBC 3.46 L Hgb 10.9 L Hct 34.2 L MCV 98.8 MCH 31.5 MCHC 31.9 L RDW 12.4 Plt Count 231 MPV 10.5 H Sodium 130 L Potassium 3.9 Chloride 96 L Carbon Dioxide 29 Anion Gap 5 L BUN 13 Creatinine 0.80 Estim Creat Clear Calc 40 Estimated GFR > 60 Glucose 182 H POC Capillary Glucose 226 H 199 H Calcium 9.5 02/22/23 02/22/23 20:10 17:01 WBC RBC Hgb Hct MCV MCH MCHC RDW Plt Count MPV Sodium Potassium Chloride Carbon Dioxide Anion Gap BUN Creatinine Estim Creat Clear Calc Estimated GFR Glucose POC Capillary Glucose 193 H 141 H Calcium Preliminary micro results at discharge 02/20/23 20:30 Blood Culture - Preliminary Blood 02/20/23 20:30 Blood Culture - Preliminary Blood Imaging Radiologist's impression: ITS Impressions Chest X-Ray 02/20/23 16:23 IMPRESSION: 1. No acute cardiopulmonary disease. Discharge Plan Discharge Attending physician on discharge: Donta Braxton Consulting providers: Donna Wasserman Discharging Clinician: Donta Braxton Anticipated Discharge Date/Time: 02/23/23 13:54 Patient Disposition: Home, Self-Care Activity: as tolerated Diet: regular Patient
== END 2023-02-23 14:50 | DRG 690 ==
LOC: ANHED 21:16 → ANH2MED 22:01
PROVIDERS: Emergency Medicine; Family Medicine; Admitting Provider Internal Medicine; Emergency Provider Physician Assistant; PCP Nurse Practitioner Family; Visit Provider Internal Medicine
DX: N39.0 Urinary tract infection, site not specified (principal); E87.1 Hypo-osmolality and hyponatremia; B96.1 Klebsiella pneumoniae [K. pneumoniae] as the cause of diseases classified elsewhere; W19.XXXA Unspecified fall, initial encounter; E86.0 Dehydration; E55.9 Vitamin D deficiency, unspecified; E11.9 Type 2 diabetes mellitus without complications; F03.90 Unspecified dementia, unspecified severity, without behavioral disturbance, psychotic disturbance, mood disturbance, and anxiety; F41.9 Anxiety disorder, unspecified; G47.00 Insomnia, unspecified; I10 Essential (primary) hypertension; I25.2 Old myocardial infarction; Z85.42 Personal history of malignant neoplasm of other parts of uterus
CPT/HCPCS: 36415; 71045; 80048; 80053; 81001; 82948; 83605; 83690; 84484; 85025; 85027; 85055; 85610; 85730; 87040; 87077; 87086; 87186; 93005; 96361; 96365; 97161; 97165; 99285; A9270; G0378; J0696; J1650; J1815; J7030; J7040

== ENCOUNTER 2023-09-01 02:09 | Emergency (ER) | payer MEDICARE, SELFPAY ==
[2023-09-01] VITALS (9 sets, daily range): BP systolic 123–198; BP diastolic 55–93; PULSE 74–85; RESP 15–26; TEMP 37.1; O2SAT 95–100
--- NOTE | ~2023-09-01 | XR_ITS ---
XR wrist LT min 3V 09/01/2023 06:05 Indication: Left wrist pain after fall Procedure: 3 views left wrist Comparison: No prior studies for comparison. Findings: There is a nondisplaced radial styloid fracture. 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 Osteopenia. There is chondrocalcinosis. Impression: 1: Nondisplaced radial styloid fracture. Reviewed, dictated and finalized at location B. Impression: 1: Nondisplaced radial styloid fracture.
--- NOTE | ~2023-09-01 | CT_ITS ---
EXAMINATION: CT cervical spine wo con DATE: 09/01/2023 06:10 INDICATION: Neck pain after fall TECHNIQUE: Computed tomography (CT) of the cervical spine was performed without intravenous contrast. The dose-length product was 134 mGy-cm. Automated exposure control and iterative reconstruction tech [employer] were employed. COMPARISON: CT dated 02/10/2023 FINDINGS: Lung apices are normal. There is carotid atherosclerosis. No significant paraspinal soft ti ssue abnormality. There is severe cervical spondylosis with disc narrowing, endplate degenerative joaquina nge and multilevel facet and uncinate hypertrophy. There is levoscoliosis. Odontoid process is normal . Craniovertebral junction is normal. No evidence for perched facet. Degenerative changes most severe at C5-6 and C6-7 with degenerative anterolisthesis at C6-7 through T2-3. IMPRESSION: 1. No acute abnormality of the cervical spine. 2: Severe cervical and upper thoracic spondylosis. Reviewed, dictated and finalized at location B.
--- NOTE | ~2023-09-01 | CT_ITS ---
EXAMINATION: CT brain wo con DATE: 09/01/2023 06:10 INDICATION: Unwitnessed fall TECHNIQUE: Computed tomography (CT) of the head was performed without intravenous contrast. The dose- length product was 605.33 mGy-cm. Automated exposure control and iterative reconstruction technique w ere employed. COMPARISON: CT dated 02/10/2023 FINDINGS: Generalized atrophy. There are scattered moderate periventricular and subcortical white mat ter changes, most likely related to small vessel ischemic disease (microangiopathy). No ventriculomeg aisha or midline shift. Basilar cisterns are patent. There is intracranial atherosclerosis. No acute in tracranial hemorrhage, infarction, mass or mass effect. Basilar cisterns are patent. Paranasal sinuse s and mastoids are pneumatized. No depressed skull fractures. IMPRESSION: 1. No acute intracranial abnormality. Reviewed, dictated and finalized at location B.
--- NOTE | ~2023-09-01 | XR_ITS ---
XR hip BI 2V w AP pelvis 09/01/2023 02:57 Indication: Status post fall. Bilateral hip pain. Procedure: AP pelvis and 2 views each hip Comparison: 02/10/2023 Findings: There is moderate osteoarthritis of the hips. There is lower lumbar spondylosis partially v isualized. Pelvic rings are intact. There is a side plate and screws transfixing the proximal aspect of the right femur, partially visualized. No acute fracture or traumatic malalignment. Impression: 1: No acute fracture. 2: Moderate osteoarthritis of the hips. Reviewed, dictated and finalized at location B. Impression: 1: No acute fracture. 2: Moderate osteoarthritis of the hips.
--- NOTE | ~2023-09-01 | XR_ITS ---
XR chest 1V portable 09/01/2023 06:03 Indication: Status post fall. Dementia. Procedure: AP portable chest Comparison: Comparison to multiple prior studies sequentially, with oldest reviewed study dated 10/2023. Findings: Borderline heart size. No focal air space disease, pulmonary edema, pleural effusion or aparna pected pneumothorax. There are are healed right rib fractures. Impression: 1: No acute cardiopulmonary disease. Reviewed, dictated and finalized at location B. Impression: 1: No acute cardiopulmonary disease.
--- NOTE | 2023-09-01 02:16 | ECG_ITS ---
Test Date: 2023-09-01 02:18:15 Measurements Intervals [place] Rate: 79 P: 61 [place]: 212 QRS: -10 QRSD: 102 T: 13 QT: 385 QTc: 442 Interpretive Statements SINUS RHYTHM WITH FIRST DEGREE AV BLOCK POSSIBLE LEFT ATRIAL ENLARGEMENT DELAYED PRECORDIAL R/S TRANSITION LEFT VENTRICULAR HYPERTROPHY CONSIDER INFERIOR INFARCT, AGE INDETERMINATE BASELINE ARTIFACT- I, II, III, AVR, AVL, AVF, V4 ABNORMAL ECG No previous ECG available for comparison Electronically Signed On 09-01-2023 08:36:50 CDT by Delta Garcia D.O.
[2023-09-01 02:28] LABS: Basophils Absolute Auto 0.1 K/mm3 (0.0-0.1); Basophils Percent Auto 0.4 % (0.2-1.2); Eosinophils Percent Auto 0.3 % (0-4.4); Hematocrit 33.9 % (37.0-47.0); Hemoglobin 11.6 g/dL (12.0-15.0); Immature Granulocyte Absolute 0.04 K/mm3 (0.00-0.031); Immature Granulocyte Percent A 0.3 % (0-0.5); Immature Platelet Fraction Pct 3.2 % (0.9-11.2); Lymphocytes Absolute Auto 6.42 K/mm3 (0.9-3.2); Lymphocytes Percent Auto 52.8 % (18.3-44.2); Mean Corpuscular HGB Conc 34.2 g/dl (32-36); Mean Corpuscular Hemoglobin 32.2 pg (26-34); Mean Corpuscular Volume 94.2 fl (80-100); Mean Platelet Volume 9.8 fl (7.4-10.4); Monocytes Absolute Auto 0.7 K/mm3 (0.1-0.6); Monocytes Percent Auto 5.9 % (2.6-8.5); Neutrophils Absolute Auto 4.9 K/mm3 (1.3-6.7); Neutrophils Percent Auto 40.3 % (45.5-73.1); Platelet Count Result 340 k/mm3 (150-375); White Blood Count 12.2 K/mm3 (4.5-10.0)
[2023-09-01 02:35] LABS: Alanine Aminotransferase 18 U/L (6-35); Albumin Level 4.3 g/dL (3.5-5.1); Alkaline Phosphatase 48 U/L (38-126); Anion Gap 10 mmol/L (4-12); Aspartate Amino Transferase 29 U/L (14-36); Bilirubin,Total 0.5 mg/dL (0.2-1.3); Blood Urea Nitrogen 19 mg/dL (7-17); Calcium 10.2 mg/dL (8.4-10.2); Carbon Dioxide 26 mmol/L (22-30); Chloride 96 mmol/L (98-107); Estimated CRCL calculation 40 ml/min; Estimated Glomerular Filt Rate > 60; Glucose 220 mg/dL (65-110); Potassium 3.3 mmol/L (3.4-5.0); Sodium 132 mmol/L (137-145)
[2023-09-01 02:41] LABS: Prothrombin Time 13.8 Seconds (11.1-14.7)
[2023-09-01 02:42] LABS: Partial Thromboplastin Time 23.1 Seconds (22.3-36.8)
[2023-09-01 03:45] LABS: Appearance Urine Cloudy (Clear); Bacteria Urine None Seen /hpf; Bilirubin Urine Negative (Negative); Blood Urine Trace (Negative); Color Urine Yellow (Yellow); Glucose Urine UA 3+ mg/dL (Negative); Ketones Urine Negative (Negative); Leukocyte Esterase Ur Negative LEU/UL (Negative); Nitrate Urine Negative (Negative); Non Pathogenic Casts 0-2; Protein Urine 2+ mg/dL (Negative); Specific Grav Ur 1.023 (1.001-1.035); Squamous Epithelial Cell Urine None Seen /hpf (Few); Urobilinogen Urine 0.2 mg/dL (<2.0); WBC Urine 0-5 /hpf (0-3); pH Urine 7.5 (5.0-9.0)
[2023-09-01 03:46] LABS: Add Urine Microscopic? YES
--- NOTE | 2023-09-01 06:46 | ED.GENADULT ---
HPI - General Adult General Chief complaint: Altered Mental Status Stated complaint: FALL, AMS, HIP AND ARM PAIN Time Seen by Provider: 09/01/23 03:59 History of Present Illness HPI narrative: This s an 87[place]year-[place]. Patient has dementia cannot provide any details about the fall. This time she is only complaining of pain to her left wrist. No other complaints. Denies fevers chills chest pain difficulty breathing abdominal pain or urinary symptoms. Related Data Allergies Allergy/AdvReac Type Severity Reaction Status Date / Time adhesive AdvReac Mild BANDAIDS Verified 08/28/23 08:49 CAUSE RASH codeine AdvReac Mild N/V Verified 08/28/23 08:49 latex AdvReac Mild Itching Verified 08/28/23 08:49 [facility] Past Medical History Medical History Abdominal hernia Anxiety Diabetes H/O cancer of uterus History of acute cystitis (~11/2018) Follows with Dr Jefferson Hypertension Hypertension Insomnia Memory loss Myocardial infarct, old tropinins were elevated; she denies [place] Type 2 diabetes mellitus without complications Vitamin D deficiency Family History Family History Mother Cerebrovascular accident Family history of heart disease in male family member before age 55 Father Patient's father is Family history of malignant melanoma Other Family history of condition Family history of dementia Social History Social History Smoking status: Never smoker Alcohol intake: current Drinks per week: 3 Substance use: never Substance use type: does not use Do You Feel Safe in your Home?: Yes Lack of Transportation: No Lack of Food: Never True Current Housing: I Have Housing Concerned About Future Housing: No Difficulty Paying Gas/Electric Bills: No Difficulty Paying for Meds: No Currently Unemployed: No Education: Associate Degree Difficulty w/ Childcare or Family Care: No Spiritual care concerns: No Exam Narrative: APPEARANCE: No apparent distress. Head: atraumatic. EYES: EOMI, NOSE: Atraumatic NECK: Trachea midline RESPIRATORY: No increased rate of breathing clear to auscultation CARDIOVASCULAR: RRR, no peripheral edema ABDOMINAL: Non-distended soft nontender MUSCULOSKELETAl: Head to toe trauma exam revealed tenderness over the left wrist. No significant swelling bruising or edema. NEURO: Alert. Moving 4/4 extremities SKIN:: Warm, dry. Normal color PSYCHIATRIC: Normal affect Course Vital Signs Vital signs: Vital Signs Temperature 98.8 F 09/01/23 02:12 Pulse Rate 85 09/01/23 02:12 Respiratory Rate 22 H 09/01/23 02:12 Pulse Oximetry 100 09/01/23 02:12 Oxygen Delivery Room Air 09/01/23 02:12 Temperature 98.8 F 09/01/23 02:12 Pulse Rate 77 09/01/23 06:15 Respiratory Rate 16 09/01/23 06:15 Blood Pressure 123/55 L 09/01/23 06:15 Pulse Oximetry 99 09/01/23 06:15 Oxygen Delivery Room Air 09/01/23 02:17 Medical Decision Making MDM Narrative Medical decision making narrative: -Course: 87-year-old female presenting after an unwitnessed fall. Trauma workup positive for a nondisplaced radius styloid fracture. Patient placed in a volar splint. Follow-up with orthopedics Patient be discharged back to residential. -DDX includes but is not limited to: Intracranial hemorrhage, concussion, UTI sepsis dehydration -Co-morbidities complicating care: Severe dementia -Social determinants of health: shelter resident, denies drugs or alcohol -Independent interpretation of studies: Labs reviewed. Potassium 3.3. This is repleted. Urine not indicative infection. Trauma imaging reviewed. Significant for nondisplaced radial styloid fracture. Independent EKG interpretation: Rhythm [sinus], Rate [79], [place] -[norm
--- NOTE | 2023-09-01 07:07 | PC.NURSE ---
this rn went to provide comfort measures to patient. pt requested to be placed on the bed mosqueda. pt had removed OCL that was placed on the left wrist. this rn reoriented patient to where she was and the importance of keeping OCL in place. pt verbalized understanding. this rn replaced patient diaper and provided patient bed mosqueda. pt refused to wear vital equipment.
[2023-09-01] MEDS: POTASSIUM CHLORIDE 20 MEQ ER TABLET 40 MEQ PO (07:16)
== END 2023-09-01 07:32 ==
PROVIDERS: Emergency Provider Emergency Medicine; PCP Nurse Practitioner Family
DX: S52.515A Nondisplaced fracture of left radial styloid process, initial encounter for closed fracture (principal); F03.C0 Unspecified dementia, severe, without behavioral disturbance, psychotic disturbance, mood disturbance, and anxiety; I10 Essential (primary) hypertension; I25.2 Old myocardial infarction; E55.9 Vitamin D deficiency, unspecified; E11.9 Type 2 diabetes mellitus without complications; Z79.84 Long term (current) use of oral hypoglycemic drugs; Z79.899 Other long term (current) drug therapy; M47.814 Spondylosis without myelopathy or radiculopathy, thoracic region; M47.812 Spondylosis without myelopathy or radiculopathy, cervical region; M16.0 Bilateral primary osteoarthritis of hip; I44.0 Atrioventricular block, first degree; R94.31 Abnormal electrocardiogram [ECG] [EKG]; I51.7 Cardiomegaly; W19.XXXA Unspecified fall, initial encounter
CPT/HCPCS: 29125; 36415; 70450; 71045; 72125; 73110; 73521; 80053; 81001; 85025; 85055; 85610; 85730; 93005; 99284; A9270

== ENCOUNTER 2023-09-07 12:23 | Emergency (ER) | payer MEDICARE, SELFPAY ==
--- NOTE | ~2023-09-07 | XR_ITS ---
XR chest 2V Ordering provider: Enrique Rose MD History: 87 years Female with . SOB, HX OF HYPERTENSION AND IA, DEMENTIA . Comparison: September 01, 2023 FINDINGS: MEDIASTINUM: The cardiac silhouette is not enlarged. LUNGS: No infiltrates, effusions or pneumothorax. Prominent markings in the lower lobes. OTHER: No free air under the diaphragm. S-shaped scoliosis. IMPRESSION: No acute cardiopulmonary pathology. Reviewed, dictated and finalized at location A.
[2023-09-07 12:26] VITALS: BP 209/80; PULSE 83; RESP 18; TEMP 36.7; O2SAT 100
--- NOTE | 2023-09-07 12:28 | ECG_ITS ---
Test Date: 2023-09-07 12:39:34 Measurements Intervals [place] Rate: 87 P: 59 [place]: 172 QRS: -4 QRSD: 93 T: 22 QT: 385 QTc: 465 Interpretive Statements SINUS RHYTHM POSSIBLE LEFT ATRIAL ENLARGEMENT LEFT VENTRICULAR HYPERTROPHY WITH ST-T CHANGE BORDERLINE R WAVE PROGRESSION, ANTERIOR LEADS CONSIDER INFERIOR MYOCARDIAL INFARCTION , PROBABLY OLD BASELINE ARTIFACT- I, II, III, AVR, AVL, AVF, V1-V6 ABNORMAL ECG Compared to ECG 09/01/2023 02:18:15 NO SIGNIFICANT CHANGE Electronically Signed On 09-07-2023 12:48:55 CDT by Delta Garcia D.O.
--- NOTE | 2023-09-07 12:37 | PC.NURSE ---
general farm manager aware of patient's presentation and vitals.
[2023-09-07 12:43] LABS: Basophils Absolute Auto 0.1 K/mm3 (0.0-0.1); Basophils Percent Auto 0.5 % (0.2-1.2); Eosinophils Absolute Auto 0.2 K/mm3 (0-0.3); Eosinophils Percent Auto 1.4 % (0-4.4); Hemoglobin 13.2 g/dL (12.0-15.0); Immature Granulocyte Absolute 0.02 K/mm3 (0.00-0.031); Immature Granulocyte Percent A 0.2 % (0-0.5); Lymphocytes Absolute Auto 6.72 K/mm3 (0.9-3.2); Lymphocytes Percent Auto 53.3 % (18.3-44.2); Mean Corpuscular HGB Conc 33.8 g/dl (32-36); Mean Corpuscular Volume 94.7 fl (80-100); Mean Platelet Volume 9.6 fl (7.4-10.4); Monocytes Absolute Auto 0.6 K/mm3 (0.1-0.6); Monocytes Percent Auto 4.6 % (2.6-8.5); Neutrophils Absolute Auto 5.1 K/mm3 (1.3-6.7); Platelet Count Result 272 k/mm3 (150-375); Red Blood Count 4.12 M/mm3 (4.2-5.4); Red Cell Distribution Width 12.3 % (11.5-14.5); White Blood Count 12.6 K/mm3 (4.5-10.0)
[2023-09-07 12:54] LABS: Alanine Aminotransferase 23 U/L (6-35); Albumin Level 4.3 g/dL (3.5-5.1); Alkaline Phosphatase 52 U/L (38-126); Anion Gap 13 mmol/L (4-12); Aspartate Amino Transferase 29 U/L (14-36); Bilirubin,Total 0.8 mg/dL (0.2-1.3); Blood Urea Nitrogen 15 mg/dL (7-17); Calcium 10.1 mg/dL (8.4-10.2); Carbon Dioxide 21 mmol/L (22-30); Chloride 98 mmol/L (98-107); Estimated Glomerular Filt Rate > 60; Glucose 195 mg/dL (65-110); Potassium 3.8 mmol/L (3.4-5.0); Sodium 132 mmol/L (137-145)
--- NOTE | 2023-09-07 13:45 | PC.NURSE ---
patients family member insisted on taking patient home although they know patients blood pressure was high. educated patient about risk of leaving and to return to the ER with any worsening symptoms. removed patients IV from ems intact. patient did not appear in any resp. distress but was agitated stating i want to go home , take me home . family declined another set of vitals before leaving
== END 2023-09-07 13:45 | disposition left against medical advice (07) ==
LOC: ANHED 13:54
PROVIDERS: Emergency Provider Emergency Medicine; PCP Nurse Practitioner Family
DX: R06.02 Shortness of breath (principal)
CPT/HCPCS: 36415; 71046; 80053; 85025; 93005; 99199

== ENCOUNTER 2023-09-09 01:20 | Inpatient (IN) | payer MEDICARE, SELFPAY ==
[2023-09-09] VITALS (37 sets, daily range): BP systolic 118–192; BP diastolic 63–153; PULSE 69–94; RESP 10–29; TEMP 36.3–37.1; O2SAT 95–100; BMI 22.7
--- NOTE | ~2023-09-09 | CT_ITS ---
EXAMINATION: CT brain wo con DATE: 09/09/2023 09:25 INDICATION: Transient alteration of awareness. Psychomotor agitation, violent behavior. History of de mentia. TECHNIQUE: Computed tomography (CT) of the head was performed without intravenous contrast. The mA wa s adjusted according to patient size. Iterative reconstruction technique was employed. Exam dose: 52 9.67 mGy-cm total exam DLP. COMPARISON: 09/01/2023 CT brain FINDINGS: There is severe calcification of the vertebral and basilar as well as carotid siphon and vera praclinoid internal carotid arteries. There is nonspecific diminished attenuation of the cerebral white matter, likely due to chronic small vessel ischemic changes. Very small chronic lacunar infarct of the head of the right caudate nucleus is suggested. There is moderate central and cortical cerebral atrophy and cerebellar atrophy not unusual for patien t age. No intracranial mass lesion or hemorrhage, midline shift or mass effect or recent cerebrovascular acc ident is evident. CT is not sensitive for detection of hyperacute nonhemorrhagic CVA. No subdural or epidural hematoma is detected. No fracture or bone destruction of the cranial vault. The paranasal sinuses and mastoid air cells are unremarkable. IMPRESSION: Very severe atherosclerotic calcification of the vertebral, basilar and internal carotid arteries Very small chronic lacunar infarct of the head of the right caudate nucleus is suggested Chronic small vessel ischemic changes of the cerebral white matter No acute intracranial finding or skull fracture is detected Reviewed, dictated and finalized at [facility]. Reviewed, dictated and finalized at [facility]. IMPRESSION: Very severe atherosclerotic calcification of the vertebral, basila r and internal carotid arteries Very small chronic lacunar infarct of the head of the right caudate nucleus is suggested Chronic small vessel ischemic changes of the cerebral white matter No acute intracranial finding or skull fracture is detected
--- NOTE | ~2023-09-09 | XR_ITS ---
EXAMINATION: XR chest 1V portable DATE: 09/09/2023 04:56 INDICATION: Altered mental status. TECHNIQUE: A single frontal view of the chest was obtained. COMPARISON: Chest 2 views 09/07/2023 FINDINGS: There are airspace opacities at left lung base. No pleural effusion or pneumothorax. The he art size is normal. There are old healed right rib fractures. Surgical clips in the right upper quadr ant are likely from cholecystectomy. IMPRESSION: 1. Airspace opacities at left lung base, consistent with atelectasis versus pneumonia. Reviewed, dictated and finalized at location [facility]. IMPRESSION: 1. Airspace opacities at left lung base, consistent with atelectasis versus pne umonia.
--- NOTE | 2023-09-09 01:33 | ECG_ITS ---
Test Date: 2023-09-09 01:39:24 Measurements Intervals [place] Rate: 77 P: 42 [place]: 164 QRS: -8 QRSD: 104 T: 42 QT: 398 QTc: 453 Interpretive Statements SINUS RHYTHM LEFT VENTRICULAR HYPERTROPHY WITH ST-T CHANGE CONSIDER ANTERIOR INFARCT, AGE INDETERMINATE CONSIDER INFERIOR INFARCT, AGE INDETERMINATE ABNORMAL ECG Compared to ECG 09/07/2023 12:39:34 NO SIGNIFICANT CHANGE Electronically Signed On 09-09-2023 07:56:05 CDT by Delta Garcia D.O.
[2023-09-09 01:44] LABS: Basophils Absolute Auto 0.1 K/mm3 (0.0-0.1); Basophils Percent Auto 0.6 % (0.2-1.2); Eosinophils Absolute Auto 0.3 K/mm3 (0-0.3); Eosinophils Percent Auto 2.5 % (0-4.4); Hematocrit 35.8 % (37.0-47.0); Hemoglobin 11.8 g/dL (12.0-15.0); Immature Granulocyte Absolute 0.02 K/mm3 (0.00-0.031); Immature Granulocyte Percent A 0.2 % (0-0.5); Immature Platelet Fraction Pct 3.3 % (0.9-11.2); Lymphocytes Absolute Auto 6.25 K/mm3 (0.9-3.2); Lymphocytes Percent Auto 54.9 % (18.3-44.2); Mean Corpuscular Hemoglobin 31.8 pg (26-34); Mean Corpuscular Volume 96.5 fl (80-100); Neutrophils Absolute Auto 3.8 K/mm3 (1.3-6.7); Neutrophils Percent Auto 32.8 % (45.5-73.1); Platelet Count Result 261 k/mm3 (150-375); Red Blood Count 3.71 M/mm3 (4.2-5.4); Red Cell Distribution Width 12.5 % (11.5-14.5); White Blood Count 11.4 K/mm3 (4.5-10.0)
[2023-09-09 01:52] LABS: Alanine Aminotransferase 20 U/L (6-35); Albumin Level 3.9 g/dL (3.5-5.1); Alkaline Phosphatase 50 U/L (38-126); Anion Gap 11 mmol/L (4-12); Aspartate Amino Transferase 26 U/L (14-36); Bilirubin,Total 0.7 mg/dL (0.2-1.3); Blood Urea Nitrogen 15 mg/dL (7-17); Calcium 10.3 mg/dL (8.4-10.2); Carbon Dioxide 24 mmol/L (22-30); Chloride 98 mmol/L (98-107); Estimated CRCL calculation 37 ml/min; Estimated Glomerular Filt Rate 59; Glucose 226 mg/dL (65-110); Potassium 3.6 mmol/L (3.4-5.0); Prothrombin Time 13.9 Seconds (11.1-14.7); Sodium 133 mmol/L (137-145)
[2023-09-09 01:53] LABS: Partial Thromboplastin Time 23.3 Seconds (22.3-36.8)
--- NOTE | 2023-09-09 02:41 | ED.AMS ---
HPI - Altered Mental Status General Chief Complaint: Altered Mental Status Stated Complaint: altered mental status Time Seen by Provider: 09/09/23 02:28 Source: patient and EMS Mode of arrival: EMS Limitations: altered mental status and dementia History of Present Illness HPI narrative: Patient presents facility state that she has an altered mental status. Patient denies any chest pain, headache, abdominal pain, cough/congestion, or fever. She is screaming that she is here against her will and wants to go home. She initially states her left ear hurts but then denies this while examining. Reportedly patient has been removing the brace/splint on her wrist recently placed for injury. Related Data Home Medications Medication Instructions Recorded Confirmed amlodipine 5 mg tablet 10 mg PO DAILY 09/09/23 09/09/23 cholecalciferol (vitamin D3) 75 75 mcg PO DAILY 09/09/23 09/09/23 mcg (3,000 unit) tablet escitalopram oxalate 10 mg tablet 10 mg PO DAILY 09/09/23 09/09/23 metformin 500 mg tablet,extended 1,000 mg PO DAILY 09/09/23 09/09/23 release 24hr (osmotic) multivitamin with minerals-folic 1 tablet PO DAILY 09/09/23 09/09/23 acid 0.4 mg tablet Allergies Allergy/AdvReac Type Severity Reaction Status Date / Time adhesive AdvReac Mild BANDAIDS Verified 09/07/23 12:24 CAUSE RASH codeine AdvReac Mild N/V Verified 09/07/23 12:24 latex AdvReac Mild Itching Verified 09/07/23 12:24 [facility] Past Medical History Medical History Abdominal hernia Anxiety Body mass index [BMI] 27.0-27.9, adult Cognitive communication deficit Diabetes Difficulty in walking, not elsewhere classified Displaced comminuted fracture of shaft of right femur, subsequent encounter for closed fracture with routine healing Distal radius fracture, right H/O cancer of uterus History of acute cystitis (~11/2018) Follows with Dr Jefferson Hypertension Hypertension Insomnia Memory loss Multiple fractures of ribs, left side, subsequent encounter for fracture with routine healing Myocardial infarct, old tropinins were elevated; she denies [place] Other malaise Type 2 diabetes mellitus without complications Unspecified dementia, unspecified severity, without behavioral disturbance, psychotic disturbance, mood disturbance, and anxiety Vitamin D deficiency Surgical History Surgical History Presence of right artificial knee joint Family History Family History Mother Cerebrovascular accident Family history of heart disease in male family member before age 55 Father Patient's father is Family history of malignant melanoma Other Family history of condition Family history of dementia Social History Social History Social History: [place] documentation states no advanced directive but does include POLST signed 09/06/20 stating DNR, selective treatment Smoking status: Never smoker Alcohol intake: current Drinks per week: 3 Substance use: never Substance use type: does not use Do You Feel Safe in your Home?: Yes Lack of Transportation: No Lack of Food: Never True Current Housing: I Have Housing Concerned About Future Housing: No Difficulty Paying Gas/Electric Bills: No Difficulty Paying for Meds: No Currently Unemployed: No Education: Associate Degree Difficulty w/ Childcare or Family Care: No Living arrangements: [facility] Additional living arrangements comments: [facility] Spiritual care concerns: No (Mosque) Exam Narrative: GENERAL: well-nourished HEAD: Normocephalic, atraumatic. PERRL EYES: Non injected, non icteric ENT: Nares clear, no rhinorrhea or epistaxis. Bilateral ears with normal tympanic membranes and no erythema or or effusion. NECK: Supple. C
[2023-09-09] MEDS: HALOPERIDOL LACTATE 5 MG/ML VIAL IM (02:47)
[2023-09-09] MEDS: LORazepam INJ (*CRX) 2 MG/ML VIAL IM (02:57)
[2023-09-09 03:51] LABS: Appearance Urine Clear (Clear); Bacteria Urine None Seen /hpf; Bilirubin Urine Negative (Negative); Blood Urine Negative (Negative); Color Urine Yellow (Yellow); Glucose Urine UA 3+ mg/dL (Negative); Ketones Urine 1+ mg/dL (Negative); Leukocyte Esterase Ur Negative LEU/UL (Negative); Nitrate Urine Negative (Negative); Non Pathogenic Casts 0-2; Protein Urine Trace mg/dL (Negative); RBC Urine 0-2 /hpf (0-2); Specific Grav Ur 1.028 (1.001-1.035); Squamous Epithelial Cell Urine None Seen /hpf (Few); Urobilinogen Urine 0.2 mg/dL (<2.0); WBC Urine 0-5 /hpf (0-3); pH Urine 5.5 (5.0-9.0)
[2023-09-09 04:00] LABS: Add Urine Microscopic? YES
[2023-09-09] MEDS: AZITHROMYCIN 250 MG TABLET 500 MG PO (06:50)
--- NOTE | 2023-09-09 08:44 | ADMGEN ---
This patient, Mily Mayer, was admitted to [facility] Surg Room 316-02. Patient/family oriented to hospital policies and general routines including ID bracelet, bed and alarms, visiting hours, pain management, procedures, bathroom and other care routines, personal items, smoking policy, room service/diet, and visiting hours. Information on how to activate the Rapid Response Team has been discussed. Patient/Family are encouraged to report perceived risks to care and to ask questions if they do not understand what they are told or what they should do.
--- NOTE | 2023-09-09 08:49 | PM.IMHP ---
H&P: HPI History of Present Illness Date/Time: 09/09/23 08:49 Chief Complaint: Altered mental status Narrative: This is an 87-year-old female with significant past medical history anxiety, type 2 diabetes, history of uterine cancer, hypertension, insomnia, memory loss AR, dementia, vitamin-D deficiency who presents to the hospital from [facility] with altered mental status. Due to her mental status,history of presenting illness was obtained from the EMR and previous admissions. According to staff at [facility] patient was demonstrating severe agitation and violent behavior towards the staff requiring medication for behavioral control for the safety of the staff and patient. She was given Haldol 5 mg IM and lorazepam 2 mg IM. She was sent here for further evaluation. Workup in the hospital included a chest x-ray which showed airspace opacities at left lung base. White blood cell count 11.4, hemoglobin 11.8, sodium 133, blood sugar 226, calcium level 10.3. UA was obtained which showed 3+ glucose, 1+ ketone, otherwise normal. Patient was given a dose of azithromycin, Rocephin, Haldol, Ativan, and 1 L normal saline while in the ED. Review of Systems Review of Systems: ROS unobtainable: Yes unobtainable due to mental status PMFSH Past Medical History Medical History Abdominal hernia Anxiety Body mass index [BMI] 27.0-27.9, adult Cognitive communication deficit Diabetes Difficulty in walking, not elsewhere classified Displaced comminuted fracture of shaft of right femur, subsequent encounter for closed fracture with routine healing Distal radius fracture, right H/O cancer of uterus History of acute cystitis (~11/2018) Follows with Dr Jefferson Hypertension Hypertension Insomnia Memory loss Multiple fractures of ribs, left side, subsequent encounter for fracture with routine healing Myocardial infarct, old tropinins were elevated; she denies [place] Other malaise Type 2 diabetes mellitus without complications Unspecified dementia, unspecified severity, without behavioral disturbance, psychotic disturbance, mood disturbance, and anxiety Vitamin D deficiency Surgical History Surgical History Presence of right artificial knee joint Family History Family History Mother Cerebrovascular accident Family history of heart disease in male family member before age 55 Father Patient's father is Family history of malignant melanoma Other Family history of condition Family history of dementia Social History Social History Social History: [place] documentation states no advanced directive but does include POLST signed 09/06/20 stating DNR, selective treatment Smoking status: Never smoker Alcohol intake: current Drinks per week: 3 Substance use: never Substance use type: does not use Do You Feel Safe in your Home?: Yes Lack of Transportation: No Lack of Food: Never True Current Housing: I Have Housing Concerned About Future Housing: No Difficulty Paying Gas/Electric Bills: No Difficulty Paying for Meds: No Currently Unemployed: No Education: Associate Degree Difficulty w/ Childcare or Family Care: No Living arrangements: correction Additional living arrangements comments: [facility] Spiritual care concerns: No (Anglican) Meds Home Medications and Allergies Home Medications Medication Instructions Recorded Confirmed Type tamsulosin 0.4 mg capsule 0.4 mg PO DAILY #90 caps 05/24/21 09/09/23 Rx acetaminophen 500 mg tablet 500 mg PO .q12 PRN pain (scale 10/20/21 09/09/23 Rx (Tylenol Extra Strength) score 4-6) #60 tabs calcium carb,cit ER 600 mg-vit D3 1 tablet PO DAILY #1 tablet 12/13/21 09/09/23 Rx 12.5 mcg (500
[2023-09-09 10:04] LABS: Magnesium 1.7 mg/dL (1.6-2.3)
[2023-09-09 10:08] LABS: Hemoglobin A1C 8.1 % (<5.7)
[2023-09-09] MEDS: CHOLECALCIFEROL 1,000 UNITS TABLET 3000 UNITS PO (10:12)
[2023-09-09] MEDS: DOCUSATE SODIUM 100 MG CAPSULE PO (10:12)
[2023-09-09] MEDS: lisinopriL 10 MG TABLET PO (10:12)
[2023-09-09] MEDS: ESCITALOPRAM OXALATE 10 MG TABLET PO (10:12)
[2023-09-09] MEDS: amLODIPine BESYLATE 10 MG TABLET PO (10:12)
[2023-09-09] MEDS: MEMANTINE 5 MG TABLET PO (10:12)
[2023-09-09] MEDS: TAMSULOSIN HCL 0.4 MG CAPSULE PO (10:12)
[2023-09-09] MEDS: THERAPEUTIC MULTIVITAMINS/MINERALS TAB (*BKC) 1 TABLET PO (10:13)
[2023-09-09] MEDS: hydrALAZINE HCL 20 MG/ML VIAL 10 MG IV PUSH (10:13)
[2023-09-09] MEDS: polyethylene glycoL 3350 17 GM POWD.PACK PO (10:13)
[2023-09-09 10:38] LABS: Ammonia < 9 umol/L (9-30)
[2023-09-09 12:58] LABS: Free T4 Free Thyroxine 1.57 ng/mL (0.78-2.19)
[2023-09-09 14:47] LABS: Influenza A QL RT-PCR Negative (Negative); Influenza B QL RT-PCR Negative (Negative); RSV RNA, RT-PCR Negative (Negative); SARS-CoV-2 RNA PCR Negative (Negative)
[2023-09-09 15:24] LABS: MRSA (PCR) NOT DETECTED (NOT DETECTE)
[2023-09-09 16:25] LABS: Glucose Point of Care 176 mg/dl (65-105)
[2023-09-09 21:56] LABS: Glucose Point of Care 246 mg/dl (65-105)
[2023-09-09] MEDS: DONEPEZIL HCL 5 MG TABLET PO (23:40)
[2023-09-09] MEDS: MELATONIN 3 MG TABLET PO (23:40)
[2023-09-09] MEDS: ACETAMINOPHEN 325 MG TABLET 650 MG PO (23:40)
[2023-09-10 05:48] LABS: Basophils Absolute Auto 0.1 K/mm3 (0.0-0.1); Basophils Percent Auto 0.6 % (0.2-1.2); Eosinophils Absolute Auto 0.3 K/mm3 (0-0.3); Eosinophils Percent Auto 2.4 % (0-4.4); Hematocrit 38.5 % (37.0-47.0); Hemoglobin 12.3 g/dL (12.0-15.0); Immature Granulocyte Absolute 0.02 K/mm3 (0.00-0.031); Immature Granulocyte Percent A 0.2 % (0-0.5); Lymphocytes Absolute Auto 5.96 K/mm3 (0.9-3.2); Mean Corpuscular HGB Conc 31.9 g/dl (32-36); Mean Corpuscular Hemoglobin 30.8 pg (26-34); Mean Corpuscular Volume 96.5 fl (80-100); Mean Platelet Volume 9.9 fl (7.4-10.4); Monocytes Absolute Auto 0.6 K/mm3 (0.1-0.6); Monocytes Percent Auto 5.3 % (2.6-8.5); Neutrophils Absolute Auto 4.2 K/mm3 (1.3-6.7); Neutrophils Percent Auto 37.5 % (45.5-73.1); Platelet Count Result 268 k/mm3 (150-375); Red Blood Count 3.99 M/mm3 (4.2-5.4); Red Cell Distribution Width 12.5 % (11.5-14.5)
[2023-09-10 05:59] LABS: Alanine Aminotransferase 19 U/L (6-35); Albumin Level 3.8 g/dL (3.5-5.1); Alkaline Phosphatase 43 U/L (38-126); Anion Gap 10 mmol/L (4-12); Aspartate Amino Transferase 26 U/L (14-36); Bilirubin,Total 0.7 mg/dL (0.2-1.3); Blood Urea Nitrogen 13 mg/dL (7-17); Calcium 9.5 mg/dL (8.4-10.2); Carbon Dioxide 25 mmol/L (22-30); Chloride 101 mmol/L (98-107); Estimated CRCL calculation 47 ml/min; Estimated Glomerular Filt Rate > 60; Glucose 203 mg/dL (65-110); Potassium 3.3 mmol/L (3.4-5.0); Sodium 136 mmol/L (137-145)
[2023-09-10 06:29] LABS: Hypochromasia 1+; Platelet Estimate Adequate (Adequate); Schistocytes None Seen
[2023-09-10 06:30] LABS: Atypical Lymphocytes Present
--- NOTE | 2023-09-10 07:37 | P.PNIM_ITS ---
Progress Note: A&P Assessment and Plan (1) Altered mental status: Code(s): R41.82 - Altered mental status, unspecified Status: Acute Assessment and Plan: 09/09/23: * Has history of Dementia with behavioral problems, was found to be agitated and violent towards staff at [facility] requiring Haldol and Lorazepam to be administered for safety of patient and the staff * UA was essentially negative * She does have low NA+ 133, however this appears chronic * BG was 226 * CXR shown airspace opacities at left lung base * Will obtain blood cultures * Head CT ordered * Continue neuro checks * Will consider more Haldol on an as-needed basis, ? hallucinations today * EKG today showed sinus rhythm with a rate of 77, QTC 453 * Ammonia level <9 * TSH 6.720-will get T3 and T4 levels * Continue mine safety engineer at the bedside * CT head showed very severe atherosclerotic calcification of the vertebral, basilar, and internal carotid arteries, very small chronic lacunar infarct of the brain right caudate nucleus, chronic small-vessel ischemic changes of the cerebral white matter. 09/10/23: * Continue neuro checks, currently a and O x1 * Sodium 136 today (2) Dementia with behavioral problem: Code(s): F03.918 - Unspecified dementia, unspecified severity, with other behavioral disturbance Status: Acute Assessment and Plan: 09/09/23: * see above plan of care * Will start Namenda 5 mg daily and increase as indicated * Will also start Donepezil 5 mg at hs * Patient is currently on any medications for dementia baseline 09/10/23: * No change to current treatment plan (3) Pneumonia: Code(s): J18.9 - Pneumonia, unspecified organism Status: Acute Assessment and Plan: 09/09/23: * Chest x-ray showing airspace opacities left lung base, will treat for CAP * Patient was given a dose of azithromycin and Rocephin in the ED * We will go ahead and get blood cultures * Continue azithromycin and Rocephin * WBC slightly elevated 11.4 * Will check urine strep, urine Legionella, mycoplasma * Will also obtain an MRSA PCR 09/10/23: * Continue azithromycin and Rocephin * White blood cell count 11.0 * Urine strep, urine Legionella, mycoplasma are all still pending * MRSA is negative * Blood cultures showing no growth today on preliminary read (4) Type 2 diabetes mellitus without complications: Qualifiers: Diabetes mellitus long term care pharmacist insulin use: without long term care pharmacist use Qualified Code(s): E11.9 - Type 2 diabetes mellitus without complications Code(s): E11.9 - Type 2 diabetes mellitus without complications Status: Chronic Assessment and Plan: 09/09/23: * Blood sugars ranging 195-226 * Hgb A1C was 8.7 on 12/05/2019 * Hemoglobin A1c 8.1 today * Accu checks AC/HS * Low-dose SSI ordered * hypoglycemic protocol in place * Diabetic diet ordered * Metformin on hold 09/10/23: * Blood sugars ranging 203-246 * Will increase to a moderate dose sliding scale insulin * Will also give 10 units of Lantus tonight (5) Hypertension: Code(s): I10 - Essential (primary) hypertension Status: Chronic Assessment and Plan: 09/09/23: * Blood pressures ranging 165/73-176/69 * Continue lisinopril and amlodipine * Hydralazine ordered p.r.n. for systolic greater than 160 and diastolic greater than 100 09/10/23: * Blood pressures ranging 118/63-163/72 * Continue with current treatment plan Time Spent With Patient Time with patient: 25 - 35 minutes Subjective Date/time seen:
--- NOTE | 2023-09-10 07:37 | PM.IMPN ---
Progress Note: A&P Assessment and Plan (1) Altered mental status: Code(s): R41.82 - Altered mental status, unspecified Status: Acute Assessment and Plan: 09/09/23: Has history of Dementia with behavioral problems, was found to be agitated and violent towards staff at [facility] requiring Haldol and Lorazepam to be administered for safety of patient and the staff UA was essentially negative She does have low NA+ 133, however this appears chronic BG was 226 CXR shown airspace opacities at left lung base Will obtain blood cultures Head CT ordered Continue neuro checks Will consider more Haldol on an as-needed basis, ? hallucinations today EKG today showed sinus rhythm with a rate of 77, QTC 453 Ammonia level <9 TSH 6.720-will get T3 and T4 levels Continue registered safety engineer at the bedside CT head showed very severe atherosclerotic calcification of the vertebral, basilar, and internal carotid arteries, very small chronic lacunar infarct of the brain right caudate nucleus, chronic small-vessel ischemic changes of the cerebral white matter. 09/10/23: Continue neuro checks, currently a and O x1 Sodium 136 today (2) Dementia with behavioral problem: Code(s): F03.918 - Unspecified dementia, unspecified severity, with other behavioral disturbance Status: Acute Assessment and Plan: 09/09/23: see above plan of care Will start Namenda 5 mg daily and increase as indicated Will also start Donepezil 5 mg at hs Patient is currently on any medications for dementia baseline 09/10/23: No change to current treatment plan (3) Pneumonia: Code(s): J18.9 - Pneumonia, unspecified organism Status: Acute Assessment and Plan: 09/09/23: Chest x-ray showing airspace opacities left lung base, will treat for CAP Patient was given a dose of azithromycin and Rocephin in the ED We will go ahead and get blood cultures Continue azithromycin and Rocephin WBC slightly elevated 11.4 Will check urine strep, urine Legionella, mycoplasma Will also obtain an MRSA PCR 09/10/23: Continue azithromycin and Rocephin White blood cell count 11.0 Urine strep, urine Legionella, mycoplasma are all still pending MRSA is negative Blood cultures showing no growth today on preliminary read (4) Type 2 diabetes mellitus without complications: Qualifiers: Diabetes mellitus detention insulin use: without detention use Qualified Code(s): E11.9 - Type 2 diabetes mellitus without complications Code(s): E11.9 - Type 2 diabetes mellitus without complications Status: Chronic Assessment and Plan: 09/09/23: Blood sugars ranging 195-226 Hgb A1C was 8.7 on 12/05/2019 Hemoglobin A1c 8.1 today Accu checks AC/HS Low-dose SSI ordered hypoglycemic protocol in place Diabetic diet ordered Metformin on hold 09/10/23: Blood sugars ranging 203-246 Will increase to a moderate dose sliding scale insulin Will also give 10 units of Lantus tonight (5) Hypertension: Code(s): I10 - Essential (primary) hypertension Status: Chronic Assessment and Plan: 09/09/23: Blood pressures ranging 165/73-176/69 Continue lisinopril and amlodipine Hydralazine ordered p.r.n. for systolic greater than 160 and diastolic greater than 100 09/10/23: Blood pressures ranging 118/63-163/72 Continue with current treatment plan Time Spent With Patient Time with patient: 25 - 35 minutes Subjective Date/time seen: 09/10/23 07:37 Interval history: Interval history: This is an 87-year-old female with significant past medical history anxiety, type 2 diabetes, history of uterine cancer, hypertension, insomnia, memory loss [place], dementia, vitamin-D deficiency who presents to the hospital from [facility] with altered mental status. Due to her mental status,history of presenting illness was obtained from the EMR and previous admissions. According to staff a
[2023-09-10 08:00] VITALS: PULSE 92; RESP 18; O2SAT 100
[2023-09-10] MEDS: lisinopriL 10 MG TABLET PO (09:10)
[2023-09-10] MEDS: CHOLECALCIFEROL 1,000 UNITS TABLET 3000 UNITS PO (09:10)
[2023-09-10] MEDS: DOCUSATE SODIUM 100 MG CAPSULE PO (09:10)
[2023-09-10] MEDS: AZITHROMYCIN 250 MG TABLET 500 MG PO (09:10)
[2023-09-10] MEDS: ESCITALOPRAM OXALATE 10 MG TABLET PO (09:10)
[2023-09-10] MEDS: MEMANTINE 5 MG TABLET PO (09:10)
[2023-09-10] MEDS: THERAPEUTIC MULTIVITAMINS/MINERALS TAB (*BKC) 1 TABLET PO (09:10)
[2023-09-10] MEDS: amLODIPine BESYLATE 10 MG TABLET PO (09:10)
[2023-09-10] MEDS: polyethylene glycoL 3350 17 GM POWD.PACK PO (09:10)
[2023-09-10] MEDS: TAMSULOSIN HCL 0.4 MG CAPSULE PO (09:10)
[2023-09-10] MEDS: POTASSIUM CHLORIDE 20 MEQ ER TABLET PO (09:11)
[2023-09-10 09:15] LABS: Glucose Point of Care 213 mg/dl (65-105)
[2023-09-10] MEDS: INSULIN ASPART (*BKC) 100 UNITS/ML SUB-Q ×2 (09:20→11:58)
[2023-09-10 11:29] LABS: Glucose Point of Care 334 mg/dl (65-105)
[2023-09-10 14:00] VITALS: BP 153/83; PULSE 92; RESP 18; TEMP 37.1; O2SAT 100
[2023-09-10 16:59] LABS: Glucose Point of Care 196 mg/dl (65-105)
[2023-09-11 06:00] VITALS: BP 159/84; PULSE 90; RESP 18; TEMP 36.4; O2SAT 100
[2023-09-11 06:31] LABS: Basophils Absolute Auto 0.1 K/mm3 (0.0-0.1); Basophils Percent Auto 0.7 % (0.2-1.2); Eosinophils Absolute Auto 0.3 K/mm3 (0-0.3); Eosinophils Percent Auto 2.6 % (0-4.4); Hematocrit 39.1 % (37.0-47.0); Hemoglobin 12.8 g/dL (12.0-15.0); Immature Granulocyte Absolute 0.03 K/mm3 (0.00-0.031); Immature Granulocyte Percent A 0.3 % (0-0.5); Immature Platelet Fraction Pct 3.9 % (0.9-11.2); Lymphocytes Percent Auto 53.6 % (18.3-44.2); Mean Corpuscular HGB Conc 32.7 g/dl (32-36); Mean Corpuscular Hemoglobin 31.9 pg (26-34); Mean Corpuscular Volume 97.5 fl (80-100); Mean Platelet Volume 10.4 fl (7.4-10.4); Monocytes Absolute Auto 0.6 K/mm3 (0.1-0.6); Monocytes Percent Auto 5.1 % (2.6-8.5); Neutrophils Absolute Auto 4.4 K/mm3 (1.3-6.7); Neutrophils Percent Auto 37.7 % (45.5-73.1); Platelet Count Result 267 k/mm3 (150-375); Red Blood Count 4.01 M/mm3 (4.2-5.4); Red Cell Distribution Width 12.4 % (11.5-14.5); White Blood Count 11.8 K/mm3 (4.5-10.0)
[2023-09-11 06:42] LABS: Alanine Aminotransferase 20 U/L (6-35); Albumin Level 3.7 g/dL (3.5-5.1); Alkaline Phosphatase 50 U/L (38-126); Anion Gap 8 mmol/L (4-12); Aspartate Amino Transferase 27 U/L (14-36); Bilirubin,Total 0.6 mg/dL (0.2-1.3); Blood Urea Nitrogen 11 mg/dL (7-17); Calcium 9.6 mg/dL (8.4-10.2); Carbon Dioxide 26 mmol/L (22-30); Chloride 99 mmol/L (98-107); Estimated CRCL calculation 47 ml/min; Estimated Glomerular Filt Rate > 60; Glucose 241 mg/dL (65-110); Potassium 3.9 mmol/L (3.4-5.0); Sodium 133 mmol/L (137-145)
[2023-09-11 07:37] LABS: Glucose Point of Care 247 mg/dl (65-105)
[2023-09-11] MEDS: INSULIN ASPART (*BKC) 100 UNITS/ML SUB-Q ×2 (08:14→17:10)
[2023-09-11 08:15] VITALS: PULSE 74; O2SAT 94
[2023-09-11] MEDS: MEMANTINE 5 MG TABLET PO (08:15)
[2023-09-11] MEDS: amLODIPine BESYLATE 10 MG TABLET PO (08:15)
[2023-09-11] MEDS: AZITHROMYCIN 250 MG TABLET 500 MG PO (08:15)
[2023-09-11] MEDS: THERAPEUTIC MULTIVITAMINS/MINERALS TAB (*BKC) 1 TABLET PO (08:15)
[2023-09-11] MEDS: ESCITALOPRAM OXALATE 10 MG TABLET PO (08:15)
[2023-09-11] MEDS: CHOLECALCIFEROL 1,000 UNITS TABLET 3000 UNITS PO (08:16)
[2023-09-11] MEDS: DOCUSATE SODIUM 100 MG CAPSULE PO (08:16)
[2023-09-11] MEDS: TAMSULOSIN HCL 0.4 MG CAPSULE PO (08:16)
[2023-09-11] MEDS: lisinopriL 10 MG TABLET PO (08:21)
[2023-09-11] MEDS: polyethylene glycoL 3350 17 GM POWD.PACK PO (08:21)
[2023-09-11 11:27] LABS: Glucose Point of Care 198 mg/dl (65-105)
--- NOTE | 2023-09-11 13:14 | P.PNIM_ITS ---
Progress Note: A&P Assessment and Plan (1) Altered mental status: Code(s): R41.82 - Altered mental status, unspecified Status: Acute Assessment and Plan: 09/09/23: * Has history of Dementia with behavioral problems, was found to be agitated and violent towards staff at [facility] requiring Haldol and Lorazepam to be administered for safety of patient and the staff * UA was essentially negative * She does have low NA+ 133, however this appears chronic * BG was 226 * CXR shown airspace opacities at left lung base * Will obtain blood cultures * Head CT ordered * Continue neuro checks * Will consider more Haldol on an as-needed basis, ? hallucinations today * EKG today showed sinus rhythm with a rate of 77, QTC 453 * Ammonia level <9 * TSH 6.720-will get T3 and T4 levels * Continue mine safety director at the bedside * CT head showed very severe atherosclerotic calcification of the vertebral, basilar, and internal carotid arteries, very small chronic lacunar infarct of the brain right caudate nucleus, chronic small-vessel ischemic changes of the cerebral white matter. 09/10/23: * Continue neuro checks, currently a and O x1 * Sodium 136 today 09/11/23: * Continue neuro checks * Sodium 133 today, however his chronic (2) Dementia with behavioral problem: Code(s): F03.918 - Unspecified dementia, unspecified severity, with other behavioral disturbance Status: Acute Assessment and Plan: 09/09/23: * see above plan of care * Will start Namenda 5 mg daily and increase as indicated * Will also start Donepezil 5 mg at hs * Patient is currently on any medications for dementia baseline 09/10/23: * No change to current treatment plan (3) Pneumonia: Code(s): J18.9 - Pneumonia, unspecified organism Status: Acute Assessment and Plan: 09/09/23: * Chest x-ray showing airspace opacities left lung base, will treat for CAP * Patient was given a dose of azithromycin and Rocephin in the ED * We will go ahead and get blood cultures * Continue azithromycin and Rocephin * WBC slightly elevated 11.4 * Will check urine strep, urine Legionella, mycoplasma * Will also obtain an MRSA PCR 09/10/23: * Continue azithromycin and Rocephin * White blood cell count 11.0 * Urine strep, urine Legionella, mycoplasma are all still pending * MRSA is negative * Blood cultures showing no growth today on preliminary read 09/11/23: * Continue azithromycin and Augmentin * White blood cell count 11.8 today (4) Type 2 diabetes mellitus without complications: Qualifiers: Diabetes mellitus terminal manager insulin use: without terminal manager use Qualified Code(s): E11.9 - Type 2 diabetes mellitus without complications Code(s): E11.9 - Type 2 diabetes mellitus without complications Status: Chronic Assessment and Plan: 09/09/23: * Blood sugars ranging 195-226 * Hgb A1C was 8.7 on 12/05/2019 * Hemoglobin A1c 8.1 today * Accu checks AC/HS * Low-dose SSI ordered * hypoglycemic protocol in place * Diabetic diet ordered * Metformin on hold 09/10/23: * Blood sugars ranging 203-246 * Will increase to a moderate dose sliding scale insulin * Will also give 10 units of Lantus tonight 09/11/23: * Blood sugars ranging 198-241 * Continue moderate dose sliding scale * Will give 20 units of Lantus tonight (5) Hypertension: Code(s): I10 - Essential (primary) hypertension Status: Chronic Assessment and Plan: 09/09/23: * Blood pressures ranging 165/73-176/69 * Continue lisino
--- NOTE | 2023-09-11 13:14 | PM.IMPN ---
Progress Note: A&P Assessment and Plan (1) Altered mental status: Code(s): R41.82 - Altered mental status, unspecified Status: Acute Assessment and Plan: 09/09/23: Has history of Dementia with behavioral problems, was found to be agitated and violent towards staff at [facility] requiring Haldol and Lorazepam to be administered for safety of patient and the staff UA was essentially negative She does have low NA+ 133, however this appears chronic BG was 226 CXR shown airspace opacities at left lung base Will obtain blood cultures Head CT ordered Continue neuro checks Will consider more Haldol on an as-needed basis, ? hallucinations today EKG today showed sinus rhythm with a rate of 77, QTC 453 Ammonia level <9 TSH 6.720-will get T3 and T4 levels Continue human resources safety manager at the bedside CT head showed very severe atherosclerotic calcification of the vertebral, basilar, and internal carotid arteries, very small chronic lacunar infarct of the brain right caudate nucleus, chronic small-vessel ischemic changes of the cerebral white matter. 09/10/23: Continue neuro checks, currently a and O x1 Sodium 136 today 09/11/23: Continue neuro checks Sodium 133 today, however his chronic (2) Dementia with behavioral problem: Code(s): F03.918 - Unspecified dementia, unspecified severity, with other behavioral disturbance Status: Acute Assessment and Plan: 09/09/23: see above plan of care Will start Namenda 5 mg daily and increase as indicated Will also start Donepezil 5 mg at hs Patient is currently on any medications for dementia baseline 09/10/23: No change to current treatment plan (3) Pneumonia: Code(s): J18.9 - Pneumonia, unspecified organism Status: Acute Assessment and Plan: 09/09/23: Chest x-ray showing airspace opacities left lung base, will treat for CAP Patient was given a dose of azithromycin and Rocephin in the ED We will go ahead and get blood cultures Continue azithromycin and Rocephin WBC slightly elevated 11.4 Will check urine strep, urine Legionella, mycoplasma Will also obtain an MRSA PCR 09/10/23: Continue azithromycin and Rocephin White blood cell count 11.0 Urine strep, urine Legionella, mycoplasma are all still pending MRSA is negative Blood cultures showing no growth today on preliminary read 09/11/23: Continue azithromycin and Augmentin White blood cell count 11.8 today (4) Type 2 diabetes mellitus without complications: Qualifiers: Diabetes mellitus intermediate insulin use: without terminal computer operator use Qualified Code(s): E11.9 - Type 2 diabetes mellitus without complications Code(s): E11.9 - Type 2 diabetes mellitus without complications Status: Chronic Assessment and Plan: 09/09/23: Blood sugars ranging 195-226 Hgb A1C was 8.7 on 12/05/2019 Hemoglobin A1c 8.1 today Accu checks AC/HS Low-dose SSI ordered hypoglycemic protocol in place Diabetic diet ordered Metformin on hold 09/10/23: Blood sugars ranging 203-246 Will increase to a moderate dose sliding scale insulin Will also give 10 units of Lantus tonight 09/11/23: Blood sugars ranging 198-241 Continue moderate dose sliding scale Will give 20 units of Lantus tonight (5) Hypertension: Code(s): I10 - Essential (primary) hypertension Status: Chronic Assessment and Plan: 09/09/23: Blood pressures ranging 165/73-176/69 Continue lisinopril and amlodipine Hydralazine ordered p.r.n. for systolic greater than 160 and diastolic greater than 100 09/10/23: Blood pressures ranging 118/63-163/72 Continue with current treatment plan 09/11/23: Blood pressure 153/83 to 176/69 Increase lisinopril to 20 mg today Time Spent With Patient Time with patient: 25 - 35 minutes Subjective Date/time seen: 09/11/23 13:14 Interval history: Interval history: This is an 87-year-old female with significant past medi
[2023-09-11 14:00] VITALS: BP 166/60; PULSE 87; RESP 16; TEMP 36.9; O2SAT 98
[2023-09-11 16:26] LABS: Glucose Point of Care 255 mg/dl (65-105)
[2023-09-11 20:15] VITALS: BP 156/79; PULSE 78; RESP 18; TEMP 36.3; O2SAT 96
[2023-09-11 20:38] LABS: Glucose Point of Care 243 mg/dl (65-105)
[2023-09-12 05:50] LABS: Basophils Absolute Auto 0.1 K/mm3 (0.0-0.1); Basophils Percent Auto 0.5 % (0.2-1.2); Eosinophils Absolute Auto 0.5 K/mm3 (0-0.3); Eosinophils Percent Auto 4.1 % (0-4.4); Hematocrit 35.3 % (37.0-47.0); Hemoglobin 11.2 g/dL (12.0-15.0); Immature Granulocyte Absolute 0.02 K/mm3 (0.00-0.031); Immature Granulocyte Percent A 0.2 % (0-0.5); Immature Platelet Fraction Pct 3.7 % (0.9-11.2); Lymphocytes Absolute Auto 5.88 K/mm3 (0.9-3.2); Lymphocytes Percent Auto 53.2 % (18.3-44.2); Mean Corpuscular HGB Conc 31.7 g/dl (32-36); Mean Corpuscular Hemoglobin 30.9 pg (26-34); Mean Corpuscular Volume 97.5 fl (80-100); Mean Platelet Volume 10.1 fl (7.4-10.4); Monocytes Absolute Auto 0.6 K/mm3 (0.1-0.6); Monocytes Percent Auto 5.2 % (2.6-8.5); Neutrophils Absolute Auto 4.1 K/mm3 (1.3-6.7); Neutrophils Percent Auto 36.8 % (45.5-73.1); Platelet Count Result 265 k/mm3 (150-375); Red Blood Count 3.62 M/mm3 (4.2-5.4); Red Cell Distribution Width 12.7 % (11.5-14.5); White Blood Count 11.1 K/mm3 (4.5-10.0)
[2023-09-12 06:00] VITALS: BP 175/67; PULSE 79; RESP 20; TEMP 36.4; O2SAT 98
[2023-09-12 06:01] LABS: Alanine Aminotransferase 18 U/L (6-35); Albumin Level 3.2 g/dL (3.5-5.1); Alkaline Phosphatase 40 U/L (38-126); Anion Gap 6 mmol/L (4-12); Aspartate Amino Transferase 23 U/L (14-36); Bilirubin,Total 0.5 mg/dL (0.2-1.3); Blood Urea Nitrogen 11 mg/dL (7-17); Calcium 9.3 mg/dL (8.4-10.2); Carbon Dioxide 25 mmol/L (22-30); Chloride 100 mmol/L (98-107); Estimated CRCL calculation 47 ml/min; Estimated Glomerular Filt Rate > 60; Glucose 245 mg/dL (65-110); Potassium 3.9 mmol/L (3.4-5.0); Sodium 131 mmol/L (137-145)
[2023-09-12 07:32] LABS: Glucose Point of Care 249 mg/dl (65-105)
[2023-09-12 08:00] VITALS: PULSE 85; O2SAT 99
[2023-09-12] MEDS: CHOLECALCIFEROL 1,000 UNITS TABLET 3000 UNITS PO (08:23)
[2023-09-12] MEDS: INSULIN ASPART (*BKC) 100 UNITS/ML SUB-Q (08:23)
[2023-09-12] MEDS: polyethylene glycoL 3350 17 GM POWD.PACK PO (08:23)
[2023-09-12] MEDS: AZITHROMYCIN 250 MG TABLET 500 MG PO (08:23)
[2023-09-12] MEDS: amLODIPine BESYLATE 10 MG TABLET PO (08:24)
[2023-09-12] MEDS: lisinopriL 20 MG TABLET PO (08:24)
[2023-09-12] MEDS: ESCITALOPRAM OXALATE 10 MG TABLET PO (08:24)
[2023-09-12] MEDS: THERAPEUTIC MULTIVITAMINS/MINERALS TAB (*BKC) 1 TABLET PO (08:24)
[2023-09-12] MEDS: DOCUSATE SODIUM 100 MG CAPSULE PO (08:24)
[2023-09-12] MEDS: MEMANTINE 5 MG TABLET PO (08:24)
[2023-09-12] MEDS: TAMSULOSIN HCL 0.4 MG CAPSULE PO (08:24)
[2023-09-12] MEDS: INSULIN ASPART (*BKC) 100 UNITS/ML 6 UNITS SUB-Q ×2 (08:25→12:07)
[2023-09-12] MEDS: metFORMIN HCL XR 500 MG TAB.SR.24H 1000 MG PO (08:33)
[2023-09-12 11:40] LABS: Glucose Point of Care 178 mg/dl (65-105)
--- NOTE | 2023-09-12 11:52 | PM.DS ---
DS: Admitting Diagnosis Discharge Date 09/12/23 Admitting Diagnosis Altered mental status Dementia with behavioral problems Pneumonia Type 2 diabetes mellitus without complication Hypertension DS: Discharge Diagnosis Discharge Diagnosis (1) Altered mental status: Code(s): R41.82 - Altered mental status, unspecified Status: Acute (2) Dementia with behavioral problem: Code(s): F03.918 - Unspecified dementia, unspecified severity, with other behavioral disturbance Status: Acute (3) Pneumonia: Code(s): J18.9 - Pneumonia, unspecified organism Status: Acute (4) Type 2 diabetes mellitus without complications: Qualifiers: Diabetes mellitus parts counterman insulin use: without parts counterman use Qualified Code(s): E11.9 - Type 2 diabetes mellitus without complications Code(s): E11.9 - Type 2 diabetes mellitus without complications Status: Chronic (5) Hypertension: Code(s): I10 - Essential (primary) hypertension Status: Chronic DS: Summary Hospital Course Reason for hospitalization: Altered mental status Dementia with behavioral problems Pneumonia Type 2 diabetes mellitus without complication Hypertension Hospital Course: This is an 87-year-old female with significant past medical history anxiety, type 2 diabetes, history of uterine cancer, hypertension, insomnia, memory loss [place], dementia, vitamin-D deficiency who presents to the hospital from [facility] with altered mental status. Due to her mental status,history of presenting illness was obtained from the EMR and previous admissions. According to staff at [facility] patient was demonstrating severe agitation and violent behavior towards the staff requiring medication for behavioral control for the safety of the staff and patient. She was given Haldol 5 mg IM and lorazepam 2 mg IM. She was sent here for further evaluation. Workup in the hospital included a chest x-ray which showed airspace opacities at left lung base. White blood cell count 11.4, hemoglobin 11.8, sodium 133, blood sugar 226, calcium level 10.3. UA was obtained which showed 3+ glucose, 1+ ketone, otherwise normal. Patient was given a dose of azithromycin, Rocephin, Haldol, Ativan, and 1 L normal saline while in the ED. patient required a product safety associate for few days as she remained pleasantly confused. She is now alert and oriented times 2-3 which is her baseline. She is stable for discharge at this time. She will need to finish her antibiotics and follow-up with her primary care physician in 1 week. She was also started Namenda and Aricept. Final diagnosis: Altered mental status, community-acquired pneumonia, dementia with behavioral problems Status at Discharge Cognitive/behavioral status at discharge: Alert oriented times 2-3 Functional status at discharge: uses cane/walker Overall status at discharge: patient is progressing back to baseline Time Spent with Patient Time attestation: Total time spent providing and/or coordinating discharge services: Time spent: Greater than 30 minutes Exam Narrative: General: In no acute distress, malnourished Cardiac: Normal S1 and S2. RRR, No murmur, gallops or friction rubs, peripheral pulses intact. Respiratory: Lungs clear to auscultation, no adventitious lung sounds, currently on room air Gastrointestinal: soft, non-distended, non-tender, normoactive bowel sounds. : voiding without difficulty. Incontinent, wearing depends Neuro: Alert to voice and oriented x2 DS: Data Data Completed and Pending Completed studies during hospitalization: Chest x-ray Head CT Pending studies at discharge: Blood cultures Labs on day of discharge: Labs from last 24 hours 09/12/23 09/12/23 09/12/23 11:31 07:21 05:26 WBC 11.1 H RBC 3.62 L Hgb 11.2 L Hct 35.3 L MCV 97.5 MCH 30.9 MCHC 31.7 L RDW 12.7 Plt Count 265 MPV 10.1 Immature Gran % (Aut
[2023-09-12 13:06] LABS: SARS-CoV-2 RNA PCR Negative (Negative)
[2023-09-12 14:05] LABS: T3 Free 3.0 pg/mL
[2023-09-13 19:34] LABS: Pneumococcal Antigen Urine NOT DETECTED
[2023-09-18 03:54] LABS: Legionella pneumophila Ag Ur NOT DETECTED
== END 2023-09-12 13:45 | disposition home or self-care (01) | DRG 884 ==
LOC: ANHED 06:18 → ANH3MEDSUR 07:30
PROVIDERS: Nurse Practitioner Acute Care; Admitting Provider Internal Medicine; Emergency Provider Student in an Organized Health Care Education/Training Program; PCP Nurse Practitioner Family; Visit Provider General Practice
DX: F03.918 Unspecified dementia, unspecified severity, with other behavioral disturbance (principal); J18.9 Pneumonia, unspecified organism; F03.911 Unspecified dementia, unspecified severity, with agitation; E11.9 Type 2 diabetes mellitus without complications; I10 Essential (primary) hypertension; E55.9 Vitamin D deficiency, unspecified; F41.9 Anxiety disorder, unspecified; Z85.42 Personal history of malignant neoplasm of other parts of uterus; I25.2 Old myocardial infarction; Z96.651 Presence of right artificial knee joint
CPT/HCPCS: 36415; 70450; 71045; 80053; 81001; 82140; 82948; 83036; 83735; 84439; 84443; 84480; 85025; 85055; 85610; 85730; 86738; 87040; 87449; 87635; 87637; 87641; 87899; 93005; 96365; 96372; 96376; 97161; 97165; 99285; A9270; G0378; J0360; J0696; J1630; J1815; J2060

== ENCOUNTER 2023-12-06 13:24 | Emergency (ER) | payer MEDICARE, SELFPAY ==
--- NOTE | ~2023-12-06 | XR_ITS ---
XR chest 2V Ordering provider: Iker Aguilar MD History: 88 years Female with . weakness . Comparison: September 09, 2023 FINDINGS: MEDIASTINUM: The cardiac silhouette is slightly enlarged. Congestive jose. LUNGS: No infiltrates, effusions or pneumothorax. Bilateral prominent markings with interstitial changes. OTHER: No free air under the diaphragm. Degenerative changes of the spine. IMPRESSION: Cardiomegaly. Bilateral interstitial changes which may indicate pneumonitis versus edema versus fibrotic changes. C linical correlation advised. Reviewed, dictated and finalized at location A. IMPRESSION: Cardiomegaly. Bilateral interstitial changes which may indicate pneumonitis versus edema vers us fibrotic changes. Clinical correlation advised.
--- NOTE | 2023-12-06 13:17 | ECG_ITS ---
Test Date: 2023-12-06 13:44:21 Measurements Intervals [place] Rate: 61 P: 49 NV: 186 QRS: -8 QRSD: 102 T: 64 QT: 329 QTc: 332 Interpretive Statements SINUS RHYTHM POSSIBLE LEFT ATRIAL ENLARGEMENT [-0.1mV P WAVE IN V1/V2] LEFT VENTRICULAR HYPERTROPHY WITH ST-T CHANGE NONSPECIFIC T-WAVE ABNORMALITY COMPARED TO PRIOR ECG 09/09/2023 01:39:24: NO SIGNIFICANT CHANGES Electronically Signed On 12-06-2023 15:32:52 CDT by Yrn Vu M.D.
[2023-12-06 13:25] VITALS: BP 191/82; PULSE 61; RESP 18; TEMP 37.1; O2SAT 99
[2023-12-06 13:47] LABS: Basophils Absolute Auto 0.1 K/mm3 (0.0-0.1); Basophils Percent Auto 0.7 % (0.2-1.2); Eosinophils Absolute Auto 0.5 K/mm3 (0-0.3); Eosinophils Percent Auto 4.6 % (0-4.4); Hematocrit 36.6 % (37.0-47.0); Hemoglobin 11.8 g/dL (12.0-15.0); Immature Granulocyte Absolute 0.03 K/mm3 (0.00-0.031); Immature Granulocyte Percent A 0.3 % (0-0.5); Immature Platelet Fraction Pct 5.2 % (0.9-11.2); Lymphocytes Absolute Auto 4.47 K/mm3 (0.9-3.2); Lymphocytes Percent Auto 38.8 % (18.3-44.2); Mean Corpuscular HGB Conc 32.2 g/dl (32-36); Mean Corpuscular Hemoglobin 31.1 pg (26-34); Mean Corpuscular Volume 96.3 fl (80-100); Mean Platelet Volume 10.8 fl (7.4-10.4); Monocytes Absolute Auto 0.5 K/mm3 (0.1-0.6); Monocytes Percent Auto 4.3 % (2.6-8.5); Neutrophils Absolute Auto 5.9 K/mm3 (1.3-6.7); Neutrophils Percent Auto 51.3 % (45.5-73.1); Platelet Count Result 214 k/mm3 (150-375); Red Cell Distribution Width 12.8 % (11.5-14.5); White Blood Count 11.5 K/mm3 (4.5-10.0)
[2023-12-06 13:55] LABS: Alanine Aminotransferase 13 U/L (6-35); Albumin Level 3.3 g/dL (3.5-5.1); Alkaline Phosphatase 57 U/L (38-126); Anion Gap 7 mmol/L (4-12); Aspartate Amino Transferase 21 U/L (14-36); Bilirubin,Total 0.5 mg/dL (0.2-1.3); Blood Urea Nitrogen 13 mg/dL (7-17); Calcium 9.8 mg/dL (8.4-10.2); Carbon Dioxide 28 mmol/L (22-30); Chloride 103 mmol/L (98-107); Estimated CRCL calculation 29 ml/min; Estimated Glomerular Filt Rate 52; Glucose 183 mg/dL (65-110); Potassium 3.1 mmol/L (3.4-5.0); Sodium 138 mmol/L (137-145)
[2023-12-06] MEDS: SODIUM CHLORIDE 0.9% IV 1,000 ML 150 ML IV CONT (14:20)
[2023-12-06 14:24] VITALS: BP 198/60; PULSE 67; RESP 18; O2SAT 94
[2023-12-06 14:27] LABS: Platelet Estimate Adequate (Adequate)
[2023-12-06 14:28] LABS: Schistocytes None Seen; Smudge Cells FEW
[2023-12-06 14:44] LABS: Add Urine Microscopic? YES; Appearance Urine Clear (Clear); Bacteria Urine None Seen /hpf; Bilirubin Urine Negative (Negative); Blood Urine Trace (Negative); Budding Yeast Urine Present /hpf; Color Urine Yellow (Yellow); Glucose Urine UA 3+ mg/dL (Negative); Ketones Urine Trace mg/dL (Negative); Leukocyte Esterase Ur Negative LEU/UL (Negative); Need Manual Microscopic Reviewed; Nitrate Urine Negative (Negative); Non Pathogenic Casts 0-2; Protein Urine 2+ mg/dL (Negative); Specific Grav Ur 1.039 (1.001-1.035); Squamous Epithelial Cell Urine None Seen /hpf (Few); Urobilinogen Urine 0.2 mg/dL (<2.0); WBC Clumps Urine Present /HPF; pH Urine 5.5 (5.0-9.0)
[2023-12-06 15:18] VITALS: BP 142/87; PULSE 67; RESP 16; O2SAT 95
[2023-12-06] MEDS: POTASSIUM CHLORIDE 20 MEQ PACKET (FOR LIQUID) 40 MEQ PO (15:26)
--- NOTE | 2023-12-06 15:43 | ED_ITS ---
HPI - Weakness General Chief complaint: Weakness Stated complaint: WEAKNESS Time Seen by Provider: 12/06/23 13:28 Source: EMS Mode of arrival: EMS Limitations: dementia History of Present Illness HPI Narrative: 88-year-old with a history of dementia was sent and the from the tingling with the complaints of weakness. As per the [facility] report patient has been having diarrhea for last several days. No history of fever or chills. no recent antibiotic use. MD Complaint: generalized weakness Related Data Home Medications Medication Instructions Recorded Confirmed cholecalciferol (vitamin D3) 75 75 mcg PO DAILY 09/09/23 09/09/23 mcg (3,000 unit) tablet multivitamin with minerals-folic 1 tablet PO DAILY 09/09/23 09/09/23 acid 0.4 mg tablet Allergies Allergy/AdvReac Type Severity Reaction Status Date / Time adhesive AdvReac Mild BANDAIDS Verified 09/07/23 12:24 CAUSE RASH codeine AdvReac Mild N/V Verified 09/07/23 12:24 latex AdvReac Mild Itching Verified 09/07/23 12:24 Review of Systems Review of Systems: ROS unobtainable: Yes other (Secondary to dementia) [facility] Past Medical History Medical History Abdominal hernia Anxiety Body mass index [BMI] 27.0-27.9, adult Cognitive communication deficit Diabetes Difficulty in walking, not elsewhere classified Displaced comminuted fracture of shaft of right femur, subsequent encounter for closed fracture with routine healing Distal radius fracture, right H/O cancer of uterus History of acute cystitis (~11/2018) Follows with Dr Jefferson Hypertension Hypertension Insomnia Memory loss Multiple fractures of ribs, left side, subsequent encounter for fracture with r outine healing Myocardial infarct, old tropinins were elevated; she denies [place] Other malaise Type 2 diabetes mellitus without complications Unspecified dementia, unspecified severity, without behavioral disturbance, psychotic disturbance, mood disturbance, and anxiety Vitamin D deficiency Surgical History Surgical History Presence of right artificial knee joint Family History Family History Mother Cerebrovascular accident Family history of heart disease in male family member before age 55 Father Patient's father is Family history of malignant melanoma Other Family history of condition Family history of dementia Social History Social History Social History: [place] documentation states no advanced directive but does include POLST signed 09/06/20 stating DNR, selective treatment Smoking status: Never smoker Alcohol intake: current Drinks per week: 3 Substance use: never Substance use type: does not use Do You Feel Safe in your Home?: Yes Lack of Transportation: No Lack of Food: Never True Current Housing: I Have Housing Concerned About Future Housing: No Difficulty Paying Gas/Electric Bills: No Difficulty Paying for Meds: No Currently Unemployed: No Education: Associate Degree Difficulty w/ Childcare or Family Care: No Living arrangements: [facility] Additional living arrangements comments: [facility] Spiritual care concerns: No (Caodaism) Exam Narrative: GENERAL: Well-appearing, well-nourished, and in no acute distress. HEAD: Normocephalic, atraumatic. EYES: PERRLA and EOMI. ENT: Nares clear, NECK: Supple. CHEST: Clear to auscultation. No respiratory distress. HEART: Regular rate and rhythm. No murmur heard. Normal peripheral pulses. ABDOMEN: Soft, nontender, nondistended, normal active bowel sounds. EXTREMITIES: Normal range of motion. No edema. SKIN: Warm, dry, no rash. NEURO: No focal deficits. Alert . PSYCH: Normal mood and affect. Course Course Emergency Course: Inform patient about her lab work. [facility] has no complaints [facility] Vital Signs Vital signs: Vital Signs Temperature 37.1 C 12/06/23 13:25 Pulse Rate 61 12/06/23 13:25 Respiratory Rate 18 12/06/23 13:25 Blood Pressure 191/82 H 12/06/23 13:25 Pulse Oximetry 99 12/06/23 13:25 Temperature 37.1 C 12/06/23 13:25 Pulse Rate 67 12/06/23 15:18 Respiratory Rate 16 12/06/23 15:18 Blood Pressure 142/87 H 12/06/23 15:18 Pulse Oximetry 95 12/06/23 15:18 MDM - Weakness MDM Narrative Medical decision making narrative: 88-year-old with a history of dementia was sent in for weakness her exam is unremarkable except she is quite confused. Will obtain lab work and UA. And well hydrated with normal saline Differential Diagnosis Differential diagnosis: Likely sepsis and dehydration Medical Records Attestation: I reviewed the patient's medical records. Lab Data Attestation: I reviewed the patient's lab results. 12/06/23 13:39 12/06/23 13:39 Labs: Lab Results 12/06/23 12/06/23 Range/Units 13:39 13:57 WBC 11.5 H (4.5-10.0) K/mm3 RBC 3.80 L (4.2-5.4) M/mm3 Hgb 11.8 L (12.0-15.0) g/dL Hct 36.6 L (37.0-47.0) % MCV 96.3 (80-100) fl MCH 31.1 (26-34) pg MCHC 32.2 (32-36) g/dl RDW 12.8 (11.5-14.5) % Plt Count 214 (150-375) k/mm3 MPV 10.8 H (7.4-10.4) fl Immature Gran % (Auto) 0.3 (0-0.5) % Neut % (Auto) 51.3 (45.5-73.1) % Lymph % (Auto) 38.8 (18.3-44.2) % [place] % (Auto) 4.3 (2.6-8.5) % Eos % (Auto) 4.6 H (0-4.4) % Baso % (Auto) 0.7 (0.2-1.2) % Lymph # (Auto) 4.47 H (0.9-3.2) K/mm3 [place] # (Auto) 0.5 (0.1-0.6) K/mm3 Eos # (Auto) 0.5 H (0-0.3) K/mm3 Baso # (Auto) 0.1 (0.0-0.1) K/mm3 Abs Immat Gran (auto) 0.03 (0.00-0.031) K/mm3 Absolute Neuts (auto) 5.9 (1.3-6.7) K/mm3 Absolute Nucleated RBC 0.000 (0.0-0.012) K/mm3 Nucleated RBC % 0.0 (0.0-0.2) % Smudge Cells Few Platelet Estimate Adequate (Adequate) % Immature Plt Fraction 5.2 (0.9-11.2) % Schistocytes None seen Sodium 138 (137-145) mmol/L Potassium 3.1 L (3.4-5.0) mmol/L Chloride 103 (98-107) mmol/L Carbon Dioxide 28 (22-30) mmol/L Anion Gap 7 (4-12) mmol/L BUN 13 (7-17) mg/dL Creatinine 1.00 (0.7-1.0) mg/dL Estim Creat Clear Calc 29 ml/min Estimated GFR 52 L (59 - ) Glucose 183 H (65-110) mg/dL Calcium 9.8 (8.4-10.2) mg/dL Total Bilirubin 0.5 (0.2-1.3) mg/dL AST 21 (14-36) U/L ALT 13 (6-35) U/L Alkaline Phosphatase 57 (38-126) U/L Total Protein 6.0 L (6.3-8.2) g/dL Albumin 3.3 L (3.5-5.1) g/dL Urine Color Yellow (Yellow) Urine Appearance Clear (Clear) Urine pH 5.5 (5.0-9.0) Ur Specific [place] 1.039 H (1.001-1.035) Urine Protein 2+ H (Negative) mg/dL Urine Glucose (UA) 3+ H (Negative) mg/dL Urine Ketones Trace H (Negative) mg/dL Ur Blood (Man) Trace (Negative) Urine Nitrate Negative (Negative) Urine Bilirubin Negative (Negative) Urine Urobilinogen 0.2 (<2.0) mg/dL Add Ur Microanalysis Reviewed Leukocyte Esterase Rfl Negative (Negative) AMBAR/UL Urine RBC 3-5 H (0-2) /hpf Urine WBC 6-10 H (0-3) /hpf Urine WBC Clumps Present H (None) /HPF Ur Squamous Epith Cells None seen (Few) /hpf Urine Bacteria None seen /hpf Urine Casts 0-2 Urine Yeast (Budding) Present H (None) /hpf Discharge Plan Discharge Clinical Impression: Weakness, Hypokalemia Patient Disposition: NH Longterm/Asst Living Condition: Stable Instructions: Weakness (ED) Additional Instructions: continue home medications.follow with your doctor. Prescriptions: No Action multivit with min-folic acid 0.4 mg Tablet 1 tablet PO DAILY cholecalciferol (vitamin D3) 75 mcg (3,000 unit) Tablet 75 mcg PO DAILY donepezil [Aricept] 5 mg Tablet 5 mg PO HS Qty: 30 0RF lisinopril 20 mg Tablet 20 mg PO DAILY Qty: 30 0RF memantine 5 mg tablet 5 mg PO DAILY Qty: 30 0RF tamsulosin 0.4 mg capsule 0.4 mg PO DAILY Qty: 90 0RF acetaminophen [Tylenol Extra Strength] 500 mg tablet 500 mg PO .q12 PRN (Reason: pain (scale score 4-6)) Qty: 60 2RF calcium carb, citrate-vit D3 600 mg-12.5 mcg (500 unit) tablet extended release 1 tablet PO DAILY Qty: 1 0RF melatonin 3 mg capsule 3 mg PO QHS Qty: 1 0RF polyethylene glycol 3350 [Miralax] 17 gram/dose powder 17 g PO DAILY Qty: 119 0RF docusate sodium [Colace] 100 mg capsule 100 mg PO DAILY Qty: 1 0RF escitalopram oxalate [Lexapro] 20 mg tablet 20 mg PO DAILY Qty: 90 2RF nebivolol [Bystolic] 5 mg tablet 5 mg PO DAILY Qty: 90 0RF Jardiance 25 mg tablet 25 mg PO DAILY Qty: 90 3RF metformin 1,000 mg tablet 1,000 mg PO BID Qty: 180 4RF Follow-up/Referrals: Carissa Medina, ANCHORMAN [Primary Care Provider] - Time of Disposition: 15:45
[2023-12-06 15:58] VITALS: PULSE 79; RESP 18; O2SAT 99
== END 2023-12-06 16:07 ==
PROVIDERS: Emergency Medicine; Emergency Provider Family Medicine; PCP Nurse Practitioner Family
DX: R53.1 Weakness (principal); E87.6 Hypokalemia; F03.90 Unspecified dementia, unspecified severity, without behavioral disturbance, psychotic disturbance, mood disturbance, and anxiety; E11.9 Type 2 diabetes mellitus without complications; I10 Essential (primary) hypertension; E55.9 Vitamin D deficiency, unspecified; Z85.42 Personal history of malignant neoplasm of other parts of uterus
CPT/HCPCS: 36415; 71046; 80053; 81001; 85025; 85055; 87086; 93005; 96360; 99283; A9270; J7030

== ENCOUNTER 2023-12-18 11:37 | Emergency (ER) | payer MEDICARE, SELFPAY ==
[2023-12-18] VITALS (23 sets, daily range): BP systolic 180–218; BP diastolic 72–139; PULSE 67–94; RESP 10–23; TEMP 36.9; O2SAT 88–100
[2023-12-18] MEDS: MORPHINE SULFATE INJ (*CRX) 10 MG/ML AMP 4 MG IM (12:02)
--- NOTE | 2023-12-18 12:27 | ED.AMS ---
HPI - Altered Mental Status General Chief Complaint: Altered Mental Status Stated Complaint: neuro sx Time Seen by Provider: 12/18/23 11:49 History of Present Illness HPI narrative: Patient has severe dementia/ Alzheimer's, is at assisted living facility, was found to be much less responsive yesterday, and continues to be unresponsive today, the facility sent her to the emergency room, but her her medical directive she does not want any life-sustaining measures and would like to just be comfort care. Also noticed R sided weakness. Son accompanying her reports they are trying to get her to hospice. Related Data Home Medications Medication Instructions Recorded Confirmed cholecalciferol (vitamin D3) 75 75 mcg PO DAILY 09/09/23 12/12/23 mcg (3,000 unit) tablet multivitamin with minerals-folic 1 tablet PO DAILY 09/09/23 12/12/23 acid 0.4 mg tablet Allergies Allergy/AdvReac Type Severity Reaction Status Date / Time adhesive AdvReac Mild BANDAIDS Verified 09/07/23 12:24 CAUSE RASH codeine AdvReac Mild N/V Verified 09/07/23 12:24 latex AdvReac Mild Itching Verified 09/07/23 12:24 Review of Systems Review of Systems: All systems reviewed & are unremarkable except as noted in HPI and below PMFSH Past Medical History Medical History Abdominal hernia Anxiety Body mass index [BMI] 27.0-27.9, adult Cognitive communication deficit Diabetes Difficulty in walking, not elsewhere classified Displaced comminuted fracture of shaft of right femur, subsequent encounter for closed fracture with routine healing Distal radius fracture, right H/O cancer of uterus History of acute cystitis (~11/2018) Follows with Dr Jefferson Hypertension Hypertension Insomnia Memory loss Multiple fractures of ribs, left side, subsequent encounter for fracture with routine healing Myocardial infarct, old tropinins were elevated; she denies [place] Other malaise Type 2 diabetes mellitus without complications Unspecified dementia, unspecified severity, without behavioral disturbance, psychotic disturbance, mood disturbance, and anxiety Vitamin D deficiency Surgical History Surgical History Presence of right artificial knee joint Family History Family History Mother Cerebrovascular accident Family history of heart disease in male family member before age 55 Father Patient's father is Family history of malignant melanoma Other Family history of condition Family history of dementia Social History Social History Social History: [place] documentation states no advanced directive but does include POLST signed 09/06/20 stating DNR, selective treatment Smoking status: Never smoker Alcohol intake: current Drinks per week: 3 Substance use: never Substance use type: does not use Do You Feel Safe in your Home?: Yes Lack of Transportation: No Lack of Food: Never True Current Housing: I Have Housing Concerned About Future Housing: No Difficulty Paying Gas/Electric Bills: No Difficulty Paying for Meds: No Currently Unemployed: No Education: Associate Degree Difficulty w/ Childcare or Family Care: No Living arrangements: skilled nursing Additional living arrangements comments: [facility] Spiritual care concerns: No (Mormon) Exam Narrative: EXAMINATION OF ORGAN SYSTEMS/BODY AREAS: Constitutional: Vital signs per nursing GENERAL: Brows furrowed HEAD: Normal with no signs of head trauma. EYES: eyes closed LUNGS: on NRB HEART: [Regular rate and rhythm] ABD: [Soft], [nontender to palpation] EXT: No obvious deformity SKIN: [No rashes or lesions.] NEURO:R sided weakness; obtunded. PSYCH: Normal affect Course Vital Signs Vital signs: Vital Signs Temperature 98.4 F 12/18/23 11:43 Pulse Rate 79 12/18/23 11:43 Respiratory Rate 23 H 12/18/23 11:43 Blood Pressure 197/91 H 12/18/23 11:43 Pulse Oximetry 100 12/18/23 11:43 Temperature 98.4 F 12/18/23 11:43 Pulse Rate 69 12/18/23 14:48 Respiratory Rate 14 12/18/23 14:48 Blood Pressure 194/72 H 12/18/23 14:02 Pulse Oximetry 97 12/18/23 14:48 Oxygen Delivery Room Air 12/18/23 14:35 Oxygen Flow Rate 15 12/18/23 11:53 MDM - Altered Mental Status MDM Narrative Medical decision making narrative: patient presenting here with after mental status is yesterday, per patient wishes and family wishes, they would not like to have any invasive procedures, nor any other sort of medical treatment or evaluation, they are working on trying to get patient into comfort care/ hospice and would not want any invasive procedures or medications. I feel this is quite reasonable. housekeeping coordinator involved to help with hospice arrangement. Discharge Plan Discharge Clinical Impression: Altered mental status, Stroke-like symptoms Patient Disposition: Hospice [facility] Inpatient Condition: Serious Prescriptions: No Action multivit with min-folic acid 0.4 mg Tablet 1 tablet PO DAILY cholecalciferol (vitamin D3) 75 mcg (3,000 unit) Tablet 75 mcg PO DAILY donepezil [Aricept] 5 mg Tablet 5 mg PO HS Qty: 30 0RF lisinopril 20 mg Tablet 20 mg PO DAILY Qty: 30 0RF memantine 5 mg tablet 5 mg PO DAILY Qty: 30 0RF tamsulosin 0.4 mg capsule 0.4 mg PO DAILY Qty: 90 0RF acetaminophen [Tylenol Extra Strength] 500 mg tablet 500 mg PO .q12 PRN (Reason: pain (scale score 4-6)) Qty: 60 2RF calcium carb, citrate-vit D3 600 mg-12.5 mcg (500 unit) tablet extended release 1 tablet PO DAILY Qty: 1 0RF melatonin 3 mg capsule 3 mg PO QHS Qty: 1 0RF polyethylene glycol 3350 [Miralax] 17 gram/dose powder 17 g PO DAILY Qty: 119 0RF docusate sodium [Colace] 100 mg capsule 100 mg PO DAILY Qty: 1 0RF escitalopram oxalate [Lexapro] 20 mg tablet 20 mg PO DAILY Qty: 90 2RF nebivolol [Bystolic] 5 mg tablet 5 mg PO DAILY Qty: 90 0RF Jardiance 25 mg tablet 25 mg PO DAILY Qty: 90 3RF nystatin 100,000 unit/gram powder 1 applic topical BID Qty: 60 0RF dimethicone-zinc oxide 20-25 % spray,non-aerosol 1 spray topical BID Qty: 56 0RF metformin 1,000 mg tablet extended release 24 hr 1,000 mg PO BID Qty: 180 0RF Follow-up/Referrals: Carissa Medina, ZIPPER IRONER [Advanced Practice Nurse] -
--- NOTE | 2023-12-18 13:23 | PCCCNOTE ---
After speaking with Dr Knight and the son a hospice referral made to [facility]. Information faxed and Chelsie contacted at [facility]. faculty i on call medical assistant back estimated time of arrival of admission nurse is 30 to 45 min
--- NOTE | 2023-12-18 13:59 | PC.NURSE ---
Doris RN at bedside at this time, Komal. took patient off of NRB at this time to monitor o2 status without supplemental o2.
[2023-12-18] MEDS: MORPHINE SULFATE (*CRX) 2 MG/ML INJ 4 MG IV PUSH (14:14)
[2023-12-18] MEDS: LORazepam INJ (*CRX) 2 MG/ML VIAL 1 MG IV PUSH (14:15)
== END 2023-12-18 16:54 | disposition hospice, inpatient (51) ==
PROVIDERS: Emergency Provider Emergency Medicine; PCP Family Medicine
DX: R41.82 Altered mental status, unspecified (principal); R53.1 Weakness; Z51.5 Encounter for palliative care; G30.9 Alzheimer's disease, unspecified; F02.80 Dementia in other diseases classified elsewhere, unspecified severity, without behavioral disturbance, psychotic disturbance, mood disturbance, and anxiety; I10 Essential (primary) hypertension; I25.2 Old myocardial infarction; E11.9 Type 2 diabetes mellitus without complications; E55.9 Vitamin D deficiency, unspecified; F41.9 Anxiety disorder, unspecified; Z96.651 Presence of right artificial knee joint; Z85.41 Personal history of malignant neoplasm of cervix uteri; Z79.84 Long term (current) use of oral hypoglycemic drugs; Z79.899 Other long term (current) drug therapy
CPT/HCPCS: 96372; 96374; 96375; 99285; J2060; J2270

== ENCOUNTER 2023-12-18 15:45 | HOS | payer OTHER, MEDICARE, SELFPAY ==
[2023-12-18 17:40] VITALS: BMI 23.8
--- NOTE | 2023-12-18 17:40 | P.HP_ITS ---
H&P: HPI History of Present Illness Date/Time: 12/18/23 17:40 Chief Complaint: Uncontrolled pain and restlessness Narrative: This 88-year-old female resident of [facility] was found unresponsive by [facility] staff today. Her left arm was flaxseed. She presented the emergency department with blood pressure 194/72 pulse of 69 respirations of 17. At that time she was on a 15 L non-rebreather mask. She was switched to his per nasal cannula and satting 95%. She was grimacing and intermittently restless. She received 4 mg of morphine 1 hour apart as well as 1 mg of Ativan in the emergency department and so remained restless with intermittent grimacing. She has a prior history of dementia type 2 diabetes and coronary artery disease with prior myocardial infarction. Prior to her presumed stroke she was conversant and ambulatory. She requires assistance with all ADLs including set up for feeding. PPS was 40. Current PPS is 10. Review of Systems Review of Systems: ROS unobtainable: Yes unobtainable due to medical condition [facility] Past Medical History Medical History Abdominal hernia Anxiety Body mass index [BMI] 27.0-27.9, adult Cognitive communication deficit Diabetes Difficulty in walking, not elsewhere classified Displaced comminuted fracture of shaft of right femur, subsequent encounter for closed fracture with routine healing Distal radius fracture, right H/O cancer of uterus History of acute cystitis (~11/2018) Follows with Dr Jefferson Hypertension Hypertension Insomnia Memory loss Multiple fractures of ribs, left side, subsequent encounter for fracture with routine healing Myocardial infarct, old tropinins were elevated; she denies [place] Other malaise Type 2 diabetes mellitus without complications Unspecified dementia, unspecified severity, without behavioral disturbance, psychotic disturbance, mood disturbance, and anxiety Vitamin D deficiency Surgical History Surgical History Presence of right artificial knee joint Family History Family History Mother Cerebrovascular accident Family history of heart disease in male family member before age 55 Father Patient's father is Family history of malignant melanoma Other Family history of condition Family history of dementia Social History Social History Social History: [place] documentation states no advanced directive but does include POLST signed 09/06/20 stating DNR, selective treatment Smoking status: Never smoker Alcohol intake: current Drinks per week: 3 Substance use: never Substance use type: does not use Do You Feel Safe in your Home?: Yes Lack of Transportation: No Lack of Food: Never True Current Housing: I Have Housing Concerned About Future Housing: No Difficulty Paying Gas/Electric Bills: No Difficulty Paying for Meds: No Currently Unemployed: No Education: Associate Degree Difficulty w/ Childcare or Family Care: No Living arrangements: prison Additional living arrangements comments: [facility] Spiritual care concerns: No (Yazidi) Meds Home Medications and Allergies Home Medications Medication Instructions Recorded Confirmed Type tamsulosin 0.4 mg capsule 0.4 mg PO DAILY #90 caps 05/24/21 12/12/23 Rx acetaminophen 500 mg tablet 500 mg PO .q12 PRN pain (scale 10/20/21 12/12/23 Rx (Tylenol Extra Strength) score 4-6) #60 tabs calcium ER 600 mg (as carb,cit)-D3 1 tablet PO DAILY #1 tablet 12/13/21 12/12/23 Rx 12.5 mcg (500 unit) tablet, ext.rel docusate sodium 100 mg capsule 100 mg PO DAILY #1 cap 12/13/21 12/12/23 Rx (Colace) melatonin 3 mg capsule 3 mg PO QHS #1 cap 12/13/21 12/12/23 Rx polyethylene glycol 3350 17 17 g PO DAILY #119 grams 12/13/21 12/12/23 Rx gram/dose oral powder (Miralax) cholecalciferol (vitamin D3) 75 75 mcg PO DAILY 09/09/23 12/12/23 History mcg (3,000 unit) tablet multivitamin with minerals-folic 1 tablet PO DAILY 09/09/23 12/12/23 History acid 0.4 mg tablet donepezil 5 mg tablet (Aricept) 5 mg PO HS #30 tabs 09/11/23 12/12/23 Rx lisinopril 20 mg tablet 20 mg PO DAILY #30 tabs 09/11/23 12/12/23 Rx memantine 5 mg tablet 5 mg PO DAILY #30 tabs 09/11/23 12/12/23 Rx escitalopram oxalate 20 mg tablet 20 mg PO DAILY #90 tabs 10/31/23 12/12/23 Rx (Lexapro) nebivolol 5 mg tablet (Bystolic) 5 mg PO DAILY HTN #90 tabs 10/31/23 12/12/23 Rx empagliflozin 25 mg tablet 25 mg PO DAILY #90 tabs 11/26/23 12/12/23 Rx (Jardiance) dimethicone-zinc oxide 20 %-25 % 1 spray topical BID #56 grams 12/07/23 12/12/23 Rx topical spray metformin 1,000 mg tablet,extended 1,000 mg PO BID #180 tabs 12/07/23 12/12/23 Rx release 24hr (osmotic) nystatin 100,000 unit/gram topical 1 applic topical BID #60 grams 12/07/23 12/12/23 Rx powder Allergies Allergy/AdvReac Type Severity Reaction Status Date / Time adhesive AdvReac Mild BANDAIDS Verified 09/07/23 12:24 CAUSE RASH codeine AdvReac Mild N/V Verified 09/07/23 12:24 latex AdvReac Mild Itching Verified 09/07/23 12:24 Exam Narrative: Elevated felt health her stated age lying in hospital bed in no acute distress. Oral mucosa dry. Neck no JVD. Chest clear to auscultation. Normal effort. Heart normal S1 and S2. Regular rate. No audible murmurs. Extremities no cyanosis edema or clubbing. Abdomen bowel sounds hypoactive soft. Musculoskeletal no gross deformities to visual inspection. Neurologic mild left facial droop. Psychiatric unresponsive to verbal or tactile stimuli. Assessment and Plan Assessment and plan (1) Hospice care: Code(s): Z51.5 - Encounter for palliative care Status: Acute Assessment and Plan: * Meet inpatient hospice criteria due to recurrent continuous IV morphine for control of pain and restlessness * P.r.n. palliative regimen ordered (2) Stroke: Code(s): I63.9 - Cerebral infarction, unspecified Status: Acute (3) Altered mental status: Code(s): R41.82 - Altered mental status, unspecified Status: Acute (4) Dementia with behavioral problem: Code(s): F03.918 - Unspecified dementia, unspecified severity, with other behavioral disturbance Status: Acute (5) Type 2 diabetes mellitus without complications: Qualifiers: Diabetes mellitus mcfp insulin use: without mcfp use Qualified Code(s): E11.9 - Type 2 diabetes mellitus without complications Code(s): E11.9 - Type 2 diabetes mellitus without complications Status: Chronic (6) Hypertension: Code(s): I10 - Essential (primary) hypertension Status: Chronic (7) Coronary artery disease: Code(s): I25.10 - Atherosclerotic heart disease of [place] coronary artery without angina pectoris Status: Acute
[2023-12-18] MEDS: LORazepam INJ (*CRX) 2 MG/ML VIAL 1 MG IV PUSH (18:17)
[2023-12-18 18:18] VITALS: PULSE 64; RESP 12
[2023-12-18] MEDS: MORPHINE SULFATE INJ (*CRX) 50 MG in SODIUM CHLORIDE 0.9% IV 95 ML IV CONT (18:18)
[2023-12-18 19:10] VITALS: PULSE 59; RESP 16
[2023-12-19 07:42] VITALS: BP 173/57; PULSE 67; RESP 18; TEMP 37.7; O2SAT 98
[2023-12-19 08:00] VITALS: PULSE 71; O2SAT 96
--- NOTE | 2023-12-19 12:19 | P.PNIM_ITS ---
Progress Note: A&P Assessment and Plan (1) Hospice care: Code(s): Z51.5 - Encounter for palliative care Status: Acute Assessment and Plan: * Meet inpatient hospice criteria due to recurrent continuous IV morphine for control of pain and restlessness * P.r.n. palliative regimen ordered (2) Stroke: Code(s): I63.9 - Cerebral infarction, unspecified Status: Acute (3) Altered mental status: Code(s): R41.82 - Altered mental status, unspecified Status: Acute (4) Dementia with behavioral problem: Code(s): F03.918 - Unspecified dementia, unspecified severity, with other behavioral dis turbance Status: Acute (5) Type 2 diabetes mellitus without complications: Qualifiers: Diabetes mellitus care home insulin use: without predatory animal exterminator use Qualified Code(s): E11.9 - Type 2 diabetes mellitus without complications Code(s): E11.9 - Type 2 diabetes mellitus without complications Status: Chronic (6) Hypertension: Code(s): I10 - Essential (primary) hypertension Status: Chronic (7) Coronary artery disease: Code(s): I25.10 - Atherosclerotic heart disease of [place] coronary artery without angina pectoris Status: Acute Subjective Date/time seen: 12/19/23 12:19 Interval history: Quiet night. Remains comfortable on morphine 2 mg/hr. Son at bedside. Review of Systems Review of Systems: ROS unobtainable: Yes unobtainable due to medical condition Exam Narrative: Elevated felt health her stated age lying in hospital bed in no acute distress. Oral mucosa dry. Neck no JVD. Chest clear to auscultation. Normal effort. Heart normal S1 and S2. Regular rate. No audible murmurs. Extremities no cyanosis edema or clubbing. Abdomen bowel sounds hypoactive soft. Musculoskeletal no gross deformities to visual inspection. Neurologic mild left facial droop. Psychiatric unresponsive to verbal or tactile stimuli. Objective Data Vital Signs Vital Signs: Vital Signs - 24 hr 12/18/23 18:18 12/18/23 20:00 12/18/23 19:10 Temperature Pulse Rate 64 59 L Respiratory Rate 12 16 Blood Pressure Pulse Oximetry Oxygen Delivery Room Air Oxygen Flow Rate 12/19/23 07:42 12/19/23 08:00 Temperature 99.8 F H Pulse Rate 67 71 Respiratory Rate 18 Blood Pressure 173/57 H Pulse Oximetry 98 96 Oxygen Delivery Nasal Cannula Oxygen Flow Rate 2 Meds/Results Medications: Active Medications Generic Name Dose Route Start Last Admin Trade Name Freq PRN Reason Stop Dose Admin Acetaminophen 650 mg 12/18/23 17:33 Acetaminophen 650 Mg Suppository RECTAL Q6H PRN Fever Artificial Tears 1 drop 12/18/23 17:34 Artificial Tears Ophth Soln 15 Ml Bottle EACH EYE Q4H PRN Dry Eye(s) Bisacodyl 10 mg 12/18/23 17:35 Bisacodyl 10 Mg Suppository RECTAL DAILY PRN Constipation Glycopyrrolate 0.1 mg 12/18/23 17:33 Glycopyrrolate Inj (*Sp) 0.2 Mg/Ml Vial IV PUSH Q6H PRN secretions Morphine Sulfate 50 mg/ Sodium 100 mls @ 4 mls/hr 12/18/23 17:35 12/18/23 19:10 Chloride IV CONT 2 mg/hr .Q24H HANNA 4 mls/hr Infusion 2 MG/HR Lorazepam 1 mg 12/18/23 17:35 12/18/23 18:17 Lorazepam Inj (*Crx) 2 Mg/Ml Vial IV PUSH 1 mg Q4H PRN Administration SEE COMMENTS Morphine Sulfate 4 mg 12/18/23 17:36 Morphine Sulfate (*Crx) 4 Mg/Ml Inj IV PUSH Q2H PRN PAIN/DYSPNEA Prochlorperazine Edisylate 10 mg 12/18/23 17:35 Prochlorperazine Edisylate 10 Mg/2 Ml Vial IV PUSH Q6H PRN Nausea And Vomiting
[2023-12-19 17:23] VITALS: PULSE 83; RESP 18
[2023-12-19] MEDS: MORPHINE SULFATE INJ (*CRX) 50 MG in SODIUM CHLORIDE 0.9% IV 95 ML IV CONT (17:23)
[2023-12-19 20:00] VITALS: PULSE 79; RESP 16
[2023-12-19 21:30] VITALS: BP 144/80; PULSE 100; RESP 18; TEMP 37.4; O2SAT 89
[2023-12-20 08:00] VITALS: PULSE 91; O2SAT 80
[2023-12-20 08:49] VITALS: BP 118/48; PULSE 100; RESP 18; TEMP 36.1; O2SAT 81
--- NOTE | 2023-12-20 12:37 | P.PNIM_ITS ---
Progress Note: A&P Assessment and Plan (1) Hospice care: Code(s): Z51.5 - Encounter for palliative care Status: Acute Assessment and Plan: * Meet inpatient hospice criteria due to recurrent continuous IV morphine for control of pain and restlessness * P.r.n. palliative regimen ordered (2) Stroke: Code(s): I63.9 - Cerebral infarction, unspecified Status: Acute (3) Altered mental status: Code(s): R41.82 - Altered mental status, unspecified Status: Acute (4) Dementia with behavioral problem: Code(s): F03.918 - Unspecified dementia, unspecified severity, with other behavioral dis turbance Status: Acute (5) Type 2 diabetes mellitus without complications: Qualifiers: Diabetes mellitus halfway insulin use: without long goods drier use Qualified Code(s): E11.9 - Type 2 diabetes mellitus without complications Code(s): E11.9 - Type 2 diabetes mellitus without complications Status: Chronic (6) Hypertension: Code(s): I10 - Essential (primary) hypertension Status: Chronic (7) Coronary artery disease: Code(s): I25.10 - Atherosclerotic heart disease of [place] coronary artery without angina pectoris Status: Acute Subjective Date/time seen: 12/20/23 12:37 Interval history: Quiet night. Remains comfortable on morphine 2 mg/hr. Review of Systems Review of Systems: ROS unobtainable: Yes unobtainable due to medical condition Exam Narrative: Elevated felt health her stated age lying in hospital bed in no acute distress. Oral mucosa dry. Neck no JVD. Chest clear to auscultation. Normal effort. Heart normal S1 and S2. Regular rate. No audible murmurs. Extremities no cyanosis edema or clubbing. Abdomen bowel sounds hypoactive soft. Musculoskeletal no gross deformities to visual inspection. Neurologic mild left facial droop. Psychiatric unresponsive to verbal or tactile stimuli. Objective Data Vital Signs Vital Signs: Vital Signs - 24 hr 12/19/23 17:23 12/19/23 17:23 12/19/23 21:30 Temperature 99.3 F Pulse Rate 83 83 100 Respiratory Rate 18 18 18 Blood Pressure 144/80 H Pulse Oximetry 89 L Oxygen Delivery 12/19/23 20:00 12/19/23 20:00 12/20/23 08:49 Temperature 96.9 F L Pulse Rate 79 100 Respiratory Rate 16 18 Blood Pressure 118/48 L Pulse Oximetry 81 L Oxygen Delivery Room Air 12/20/23 08:00 Temperature Pulse Rate 91 Respiratory Rate Blood Pressure Pulse Oximetry 80 L Oxygen Delivery Room Air Intake/Output Intake/Output: Intake & Output 12/17/23 12/18/23 12/19/23 12/20/23 23:59 23:59 23:59 23:59 Intake Total 100 Output Total 950 Balance 100 -950 Meds/Results Medications: Active Medications Generic Name Dose Route Start Last Admin Trade Name Freq PRN Reason Stop Dose Admin Acetaminophen 650 mg 12/18/23 17:33 Acetaminophen 650 Mg Suppository RECTAL Q6H PRN Fever Artificial Tears 1 drop 12/18/23 17:34 Artificial Tears Ophth Soln 15 Ml Bottle EACH EYE Q4H PRN Dry Eye(s) Bisacodyl 10 mg 12/18/23 17:35 Bisacodyl 10 Mg Suppository RECTAL DAILY PRN Constipation Glycopyrrolate 0.1 mg 12/18/23 17:33 Glycopyrrolate Inj (*Sp) 0.2 Mg/Ml Vial IV PUSH Q6H PRN secretions Morphine Sulfate 50 mg/ Sodium 100 mls @ 4 mls/hr 12/18/23 17:35 12/19/23 20:00 Chloride IV CONT 2 mg/hr .Q24H HANNA 4 mls/hr Infusion 2 MG/HR Lorazepam 1 mg 12/18/23 17:35 12/18/23 18:17 Lorazepam Inj (*Crx) 2 Mg/Ml Vial IV PUSH 1 mg Q4H PRN Administration SEE COMMENTS Morphine Sulfate 4 mg 12/18/23 17:36 Morphine Sulfate (*Crx) 4 Mg/Ml Inj IV PUSH Q2H PRN PAIN/DYSPNEA Prochlorperazine Edisylate 10 mg 12/18/23 17:35 Prochlorperazine Edisylate 10 Mg/2 Ml Vial IV PUSH Q6H PRN Nausea And Vomiting
[2023-12-20] MEDS: GLYCOPYRROLATE INJ (*SP) 0.2 MG/ML VIAL 0.1 MG IV PUSH (14:17)
[2023-12-20 16:11] VITALS: TEMP 37.2
[2023-12-20] MEDS: MORPHINE SULFATE (*CRX) 4 MG/ML INJ IV PUSH (16:28)
[2023-12-20] MEDS: MORPHINE SULFATE INJ (*CRX) 50 MG in SODIUM CHLORIDE 0.9% IV 95 ML IV CONT (16:36)
[2023-12-20 18:30] VITALS: RESP 23
--- NOTE | 2023-12-21 13:10 | P.DN_ITS ---
Discharge Summary Date and Time Date of : 12/20/23 Time of : 19:35 Provider Pronounced By: 2 RNs Name of First RN That Pronounced: Tyron Rangel Name of Second RN That Pronounced: Nichole Abbott Probable Cause of Probable Cause of : stroke Summary Hospital Course: Admitted to inpatient hospice service for symptom management. Medications titrated to comfort. Mrs. Mayer peacefully. Additional Data Confirmation of as documented by pronouncing clinician: Pupillary Reflex, Palpable Pulses, Response to Stimuli, Heart Tones and Breath Sounds Name of Provider Notified: Laura Time Provider Notified: 19:50 Director Nursing Service Notified: Yes Date [facility] Notified of : 12/20/23 Time [facility] Notified of : 20:02
== END 2023-12-20 19:35 | disposition expired | DRG 951 ==
LOC: ANH3MEDSUR 16:23
PROVIDERS: Admitting Provider Internal Medicine; PCP Family Medicine; Visit Provider Internal Medicine
DX: Z51.5 Encounter for palliative care (principal); I63.9 Cerebral infarction, unspecified; I25.10 Atherosclerotic heart disease of native coronary artery without angina pectoris; I10 Essential (primary) hypertension; E11.9 Type 2 diabetes mellitus without complications; F03.90 Unspecified dementia, unspecified severity, without behavioral disturbance, psychotic disturbance, mood disturbance, and anxiety
CPT/HCPCS: A9270; J1596; J2060; J2270